=== PATIENT | male | born 1945 | race Caucasian/White ===

== ENCOUNTER → 2016-07-31 | Outpatient (CLI) | payer OTHER ==
--- NOTE | 2016-08-01 08:29 | RAD ---
EXAM DESCRIPTION: XR KNEE 4 OR MORE VIEWS CLINICAL HISTORY: 71 y/o ,M, REACTIVE ARTHROPATHIES, LEFT KNEE PAIN COMPARISON: None. IMPRESSION: Tricompartment degenerative change of left knee with osteophyte formation and joint space loss in all 3 compartments. Small loose body noted within the intertrochanteric notch. Small joint effusion. Electronically signed by: Richard Díaz MD 08/01/2016 08:28
== END ==
LOC: RAD 14:33
PROVIDERS: ATTEND Nurse Practitioner Family
DX: M25.562 Pain in left knee (principal); M02.86 Other reactive arthropathies, knee; M25.462 Effusion, left knee

== ENCOUNTER → 2016-10-02 | Outpatient (CLI) | payer OTHER | END | disposition home or self-care (01) | LOC: LAB.O 17:01 | PROVIDERS: ATTEND Nurse Practitioner Family | DX: I50.9 Heart failure, unspecified (principal); I10 Essential (primary) hypertension ==

== ENCOUNTER → 2016-10-04 | Outpatient (CLI) | payer OTHER ==
--- NOTE | 2016-10-04 16:26 | RAD ---
Procedure: XR KNEE 4 OR MORE VIEWS Exam Date: 10/04/2016 Ordering Provider: NAZANIN ADAMS Clinical Indication: KNEE PAIN Comparison: July 31, 2016 FINDINGS: There is no acute fracture or dislocation. Tricompartmental degenerative changes with periarticular osteophyte formation and moderate joint space narrowing in the medial compartment. Loose body in the intertrochanteric notch redemonstrated. Superior patellar enthesophyte. No lytic or sclerotic lesions. Small joint effusion. No subcutaneous gas. Vascular calcifications. IMPRESSION: 1. No acute fracture or dislocation of the left knee. 2. Tricompartmental degenerative changes with moderate joint space narrowing in the medial compartment. Electronically signed by: Victor Manuel Augustin MD 10/04/2016 4:26 PM CDT
--- NOTE | 2016-10-04 16:36 | RAD ---
Procedure: XR PELVIS 1-2 VIEWS Exam Date: 10/04/2016 Ordering Provider: NAZANIN ADAMS Clinical Indication: HIP PAIN Comparison: None FINDINGS: There is no fracture or dislocation. Mild degenerative changes in both hips.. The sacroiliac joints are preserved bilaterally. The pubic symphysis is normal. There are no lytic or sclerotic lesions. There are no suspicious calcifications. Vascular calcifications. Impression: 1. No acute findings within the pelvis or either hip. Electronically signed by: Victor Manuel Augustin MD 10/04/2016 4:35 PM CDT
--- NOTE | 2016-10-04 18:40 | RAD ---
EXAM DESCRIPTION: Knee,Right Complete CLINICAL HISTORY: 71 years,Male,KNEE PAIN COMPARISON: None FINDINGS: The right knee demonstrates no fractures, dislocations, or other acute bony abnormalities. The joint spaces severe loss of joint space complete in the medial compartment mild body lateral compartment and mild loss of joint space patellofemoral compartment with osteophyte changes mild in all three compartments. The soft tissues demonstrates some scattered calcified or treated disease. And surgical clips in the soft tissues of the medial knee. No joint effusion. IMPRESSION: Severe medial compartment arthritic changes and mild lateral and patellofemoral of the right knee Electronically signed by: Phil Armstrong MD 10/04/2016 6:40 PM CDT
== END | disposition home or self-care (01) ==
LOC: RAD 07:44
PROVIDERS: ATTEND Orthopaedic Surgery
DX: M25.561 Pain in right knee (principal); M25.551 Pain in right hip

== ENCOUNTER → 2016-10-09 | Outpatient (CLI) | payer OTHER ==
--- NOTE | 2016-10-09 11:42 | MRI ---
EXAM DESCRIPTION: Brain w/wo Contrast CLINICAL HISTORY: AMS, FALLS COMPARISON: None available TECHNIQUE: Non contrast MRI of the brain is performed according to our usual protocol including multiplanar multi sequence technique. Post contrasted imaging was available. FINDINGS: There is no restricted diffusion on today's study. Mild involutional changes. Minimal periventricular and deep white matter disease noted with a few T2 hyperintensities scattered throughout today's exam. There is prominence of the sulci and ventricles due to the involutional change. No mass, mass effect or shift. The flow voids are maintained within the major intracranial vessels. Negative for Chiari malformation. Remaining midline structures are unremarkable. Orbits and globes are unremarkable. The paranasal sinuses are clear. Minimal fluid seen within the left mastoid air cells. IMPRESSION: Today's exam demonstrates minimal chronic microvascular ischemic change and cerebral atrophy. No acute infarct on today's exam or mass. No abnormal enhancement on the postcontrast. Electronically signed by: Richard Díaz MD 10/09/2016 11:40 AM CDT
== END | disposition home or self-care (01) ==
LOC: MRI 07:38
PROVIDERS: ATTEND Nurse Practitioner Family
DX: R41.82 Altered mental status, unspecified (principal); R29.6 Repeated falls

== ENCOUNTER → 2016-11-02 | Outpatient (CLI) | payer OTHER | END | disposition home or self-care (01) | LOC: LAB.O 08:26 | PROVIDERS: ATTEND Nurse Practitioner Family | DX: E11.9 Type 2 diabetes mellitus without complications (principal) ==

== ENCOUNTER → 2016-11-23 | Outpatient (CLI) | payer OTHER | END | disposition home or self-care (01) | LOC: LAB.O 09:28 | PROVIDERS: ATTEND Nurse Practitioner Family | DX: R07.89 Other chest pain (principal) ==

== ENCOUNTER → 2016-12-06 | Outpatient (CLI) | payer OTHER | LOC: LAB.O 08:28 | PROVIDERS: ATTEND Nurse Practitioner Family | DX: E11.9 Type 2 diabetes mellitus without complications (principal) ==

== ENCOUNTER 2017-09-09 23:21 | Emergency (ER) | payer OTHER ==
[2017-09-10 00:09] VITALS: O2SAT 97
--- NOTE | 2017-09-10 01:14 | RAD ---
EXAM: AP CHEST RADIOGRAPH CLINICAL INDICATION: Chest pain. COMPARISON: Chest radiographs of August 19, 2013. FINDINGS: Unchanged sequela of remote heart surgery. Cardiac size and pulmonary vasculature are normal. Lungs are clear. No pleural effusions or pneumothorax. No hilar or mediastinal lymphadenopathy. No mediastinal widening. No extraluminal bowel gas under the hemidiaphragms. Bones are intact on this single view. IMPRESSION: Normal remote heart surgery portable AP chest radiograph. Electronically signed by: Beni Walsh MD 09/10/2017 1:13 AM CDT
[2017-09-10] MEDS ORDERED: ALUM & MAG HYDROX-SIMETHICONE 30 ML, LIDOCAINE VISCOUS 2% 15 ML PO ONE ×2 (01:55)
[2017-09-10] MEDS ORDERED: ALUM & MAG HYDROX-SIMETHICONE 30 ML UD ONE (01:56)
[2017-09-10] MEDS ORDERED: LIDOCAINE HCL 2% (MOUTH-THROAT) 15 ML UD ONE (01:56)
[2017-09-10] MEDS ORDERED: PANTOPRAZOLE SODIUM IV 40 MG VIAL IV ONE (02:09)
--- NOTE | 2017-09-10 02:12 | ED.PDOC ---
History of Present Illness - General Chief Complaint: GI Problem Stated Complaint: indigestion, epigastric burning 2 days Time Seen by Provider: 09/10/17 00:26 Source: patient Exam Limitations: no limitations - History of Present Illness Initial Comments: Carlos Gaines 72 y/o male stated that he had been having no radiating burning epigastric pain for the last 2 days no chest pains ,no nausea,vomiting or sob.Staed that he has GERD and had 2 heart attacks in the past stating that he was hurting more when he had the heart attack. Timing/Duration: other - 2 days Severity: moderate Improving Factors: nothing Worsening Factors: nothing Associated Symptoms: denies symptoms Allergies/Adverse Reactions: Allergies Cephalexin [From Keflex] Allergy (Verified 09/10/17 00:06) Home Medications: Ambulatory Orders Carvedilol [Carvedilol] 09/10/17 Carvedilol [Coreg] 09/10/17 Lisinopril [Prinivil] 09/10/17 Lisinopril [Prinivil] 09/10/17 Lispro Protamine/Lispro 75/25 [Humalog Mix 75/25] 09/10/17 Lispro Protamine/Lispro 75/25 [Humalog Mix 75/25] 09/10/17 Omeprazole [Prilosec Cap] 09/10/17 Omeprazole [Prilosec Cap] 09/10/17 Tramadol HCl 25 mg PO BID PRN #30 tab 09/10/17 Review of Systems - Review of Systems Constitutional: States: no symptoms reported EENTM: States: no symptoms reported Respiratory: States: no symptoms reported Cardiology: States: no symptoms reported Gastrointestinal/Abdominal: States: no symptoms reported Genitourinary: States: see HPI Musculoskeletal: States: no symptoms reported All other Systems: Reviewed and Negative, No Change from Baseline Past Medical History (General) - Patient Medical History Hx Cardiac Disorders: Yes Hx Diabetes: Yes Surgical History: coronary bypass surgery, other - stents,knee,forearm - Vaccination History Hx Tetanus, Diphtheria Vaccination: Yes - Triage Comment ED Triage Comment: epigastric burning, relieved with pepto earlier, but burning returned Family Medical History - Family History Father Family History: Unknown Hx Cardiac Disease: Yes - mi-mom/dad Hx Family Diabetes: Yes - dad,brother Hx Family Cancer: Yes - mom-gastric Physical Exam - Physical Exam General Appearance: Alert, Comfortable, No apparent distress Eye Exam: bilateral normal Ears, Nose, Throat: hearing grossly normal, normal ENT inspection Neck: non-tender, full range of motion, supple Respiratory: chest non-tender, lungs clear, normal breath sounds Cardiovascular/Chest: regular rate, rhythm, no murmur Peripheral Pulses: radial,right: 2+, radial,left: 2+ Gastrointestinal/Abdominal: normal bowel sounds, non tender, soft, no organomegaly Back Exam: no CVA tenderness, no vertebral tenderness Extremity: normal inspection, no calf tenderness Skin Exam: normal color, warm/dry Lymphatic: no adenopathy Progress - Progress Progress: 09/10/17 02:16 09/10/17 00:27 EKG Assessment DAILY 09/10/17 00:28 URINALYSIS Stat 09/10/17 00:30 EKG STAT 09/10/17 02:08 TROPONIN-I Stat Laboratory Results - last 24 hr 09/10/17 09/10/17 09/10/17 00:40 00:40 00:40 WBC 6.7 RBC 4.51 L Hgb 13.9 L Hct 39.0 L MCV 86.5 MCH 30.8 MCHC 35.6 RDW 13.4 Plt Count 181 MPV 8.9 Absolute Neuts (auto) 3.70 Absolute Lymphs (auto) 2.20 Absolute Monos (auto) 0.60 Absolute Eos (auto) 0.30 Absolute Basos (auto) 0.00 Neutrophils % 54.5 Lymphocytes % 32.2 Monocytes % 8.7 Eosinophils % 4.1 Basophils % 0.5 PT 11.5 INR 1.020 PTT (SP) 30.9 D-Dimer, Quantitative < 230 Sodium 136 Potassium 3.8 Chloride 103 Carbon Dioxide 25 Anion Gap 11.8 L BUN 14 Creatinine 0.92 BUN/Creatinine Ratio 15.2 Random Glucose 273 H Serum Osmolality 282.1 Calcium 8.9 Magnesium 1.6 L Total Bilirubin 0.6 Direct Bilirubin 0.1 Indirect Bilirubin 0.5 AST 20 ALT 16 Alkaline Phosphatase 90 Creatine Kinase 80 CK-MB (CK-2) 3.1 CK-MB (CK-2) % Not Reportable Troponin I < 0.02 B-Natriuretic Peptide 68.4 Serum Total Protein 6.6 Albumin 3.5 Lipase 15 L - Results/Orders Results/Orders: Abnormal Lab Results 09/10/17 09/10/17 00:40 00:40 RBC 4.51 L Hgb 13.9 L Hct 39.0 L Anion Gap 11.8 L Random Glucose 273 H Magnesium 1.6 L Lipase 15 L - EKG/XRAY/CT EKG: Sinus Comments: HR-82;LAE,LVH XRAY: chest - no acute changes Departure - Departure Clinical Impression: Abdominal pain Qualifiers: Abdominal location: epigastric Qualified Code(s): R10.13 - Epigastric pain Time of Disposition: 03:16 Disposition: Discharge to Home or Self Care Departure Forms: ED Discharge - Pt. Copy, Patient Portal Self Enrollment Diet: bland diet, other - Avoid greasy spicy foods;Follow up with primary MD for referral to [facility];Do not take aspirin and Ibuprofen together take it 2 hour apart Referrals: DAVID REDMAN IV, [employer]CHNICIAN [Primary Care Provider] - 1-2 Weeks Prescriptions: Tramadol HCl 25 mg PO BID PRN #30 tab PRN Reason: Pain Home Medications: Ambulatory Orders Carvedilol [Carvedilol] 09/10/17 Carvedilol [Coreg] 09/10/17 Lisinopril [Prinivil] 09/10/17 Lisinopril [Prinivil] 09/10/17 Lispro Protamine/Lispro 75/25 [Humalog Mix 75/25] 09/10/17 Lispro Protamine/Lispro 75/25 [Humalog Mix 75/25] 09/10/17 Omeprazole [Prilosec Cap] 09/10/17 Omeprazole [Prilosec Cap] 09/10/17 Tramadol HCl 25 mg PO BID PRN #30 tab 09/10/17
[2017-09-10] MEDS ORDERED: PANTOPRAZOLE SODIUM TAB 40 MG PO ONE (02:44)
[2017-09-10 03:31] VITALS: BP 154/68; TEMP 97.2
== END 2017-09-10 03:31 | disposition home or self-care (01) ==
LOC: ER 23:21
DX: R10.13 Epigastric pain (principal); E11.9 Type 2 diabetes mellitus without complications; I25.2 Old myocardial infarction; Z95.1 Presence of aortocoronary bypass graft

== ENCOUNTER → 2017-11-13 | Outpatient (CLI) | payer OTHER ==
--- NOTE | 2017-11-13 12:11 | MRI ---
EXAM DESCRIPTION: Lower Extremity,Right: Magnetic Resonance Imaging. CLINICAL HISTORY: M86.172. Other acute osteomyelitis, left ankle and foot. COMPARISON: None. TECHNIQUE: Multiplanar, high-field MRI, multiple sequences, without contrast: Right foot FINDINGS: Marrow edema is noted in the plantar aspect of the head of the great toe metatarsal and also on the distal dorsal aspect. These regions are hyperintense on inversion recovery and dark on T1 sequences. On the plantar aspect is a focal area of cortical and periosteal disruption and soft tissue edema. Soft tissue edema also noted on the plantar and distal lateral aspect of the head of the metatarsal. Normal marrow signal in the remaining metatarsals and phalanges. No significant joint effusion. No abnormal fluid collection mid and distal foot. No fractures. IMPRESSION: Osteomyelitis involving the head of the left great toe metatarsal with focal periosteal reaction and cortical disruption on the plantar aspect. Cellulitis abutting the head of the metatarsal. . CRITICAL COMMUNICATION: The critical value was discussed directly in person with Mr. Carlos Poe, nurse practitioner at approximately 1205 hours, on November 13, 2017. Electronically signed by: Jem Mcginnis MD 11/13/2017 12:10 PM CDT
== END ==
LOC: MRI 07:00
PROVIDERS: ATTEND Nurse Practitioner Family
DX: M86.171 Other acute osteomyelitis, right ankle and foot (principal)

== ENCOUNTER → 2017-11-14 | Outpatient (CLI) | payer OTHER ==
--- NOTE | 2017-11-15 16:00 | US ---
Exam: Bilateral lower extremity arterial Doppler sonogram CLINICAL HISTORY: Osteomyelitis, peripheral vascular disease, superficial femoral arterial stenosis on the right TECHNIQUE: Doppler sonographic evaluation of the bilateral lower extremities was performed. FINDINGS: Right Submitted sonographic images reveal normal widely patent vessels with no significant stenosis. Normal flow velocities with multiphasic flow throughout the right lower extremity. Calcified plaque is seen in the right common femoral artery and in the superficial femoral artery. High velocity in the distal superficial femoral artery is consistent with significant stenosis. Flow is monophasic below this level. The following peak systolic flow flow velocity measurements were obtained: Common femoral artery velocity equals 75 centimeters per second , triphasic. Superficial femoral artery velocity equals 78-162 centimeters per second triphasic proximally but monophasic at and below the high velocity distal SFA stenosis.. Popliteal artery velocity equals 45 centimeters per second , monophasic. Peroneal artery velocity equals 81 centimeters per second , monophasic. Posterior tibial artery velocity equals 49 centimeters per second , monophasic. Dorsalis pedis artery velocity equals 13 centimeters per second , monophasic. Left Submitted sonographic images reveal normal widely patent left lower extremity arteries with multiphasic flow and no significant stenosis. Calcified plaque is seen in the left superficial femoral artery and in the popliteal artery. Calcified vessels below the knees bilaterally with monophasic flow. The following peak systolic flow flow velocity measurements were obtained: Common femoral artery velocity was not obtained but the vessel appears widely patent on the submitted color flow images. Positive flow was seen in the proximal profunda femoral artery. Superficial femoral artery velocity equals 70-84 centimeters per second , triphasic. Popliteal artery velocity equals 71 centimeters per second , biphasic. Peroneal artery velocity equals 23 centimeters per second , monophasic. Posterior tibial artery velocity equals 60 centimeters per second , monophasic. Dorsalis pedis artery velocity equals 27 centimeters per second , monophasic. IMPRESSION: Severe arteriosclerotic disease with high-grade stenosis of the distal right superficial femoral artery. Monophasic flow in the right popliteal artery and in the arteries below the right knee. Monophasic flow in the arteries of the left lower extremity below the knee. Electronically signed by: Marcial Sierar MD 11/15/2017 3:59 PM CDT
--- NOTE | 2017-11-15 16:01 | US ---
EXAM DESCRIPTION: Venous,Lower Extremity RT CLINICAL HISTORY: OSTEOMYELITIS COMPARISON: None Available. TECHNIQUE: Right lower extremity venous duplex FINDINGS: Doppler evaluation of the right lower extremity deep veins was performed. Normal color flow is seen in the common femoral, superficial femoral, profunda femoral and greater saphenous veins. Normal flow is seen in the popliteal vein and veins below the knee in the calf. Normal venous compressibility and flow augmentation. IMPRESSION: Negative for evidence of deep venous thrombosis on right lower extremity venous Doppler sonogram. Electronically signed by: Marcial Sierra MD 11/15/2017 3:59 PM CDT
--- NOTE | 2017-11-15 16:02 | US ---
EXAM DESCRIPTION: Venous,Lower Extremity LT CLINICAL HISTORY: OSTEOMYELITIS COMPARISON: None Available. TECHNIQUE: Left lower extremity venous duplex FINDINGS: Doppler evaluation of the left lower extremity deep veins was performed. Normal color flow is seen in the common femoral, superficial femoral, profunda femoral and greater saphenous veins. Normal flow is seen in the popliteal vein and veins below the knee in the calf. Normal venous compressibility and flow augmentation. IMPRESSION: Negative for evidence of deep venous thrombosis on left lower extremity venous Doppler sonogram. Electronically signed by: Marcial Sierra MD 11/15/2017 4:00 PM CDT
== END ==
LOC: US 14:00
PROVIDERS: ATTEND Nurse Practitioner Family
DX: M86.171 Other acute osteomyelitis, right ankle and foot (principal); I70.201 Unspecified atherosclerosis of native arteries of extremities, right leg; I73.9 Peripheral vascular disease, unspecified; E11.621 Type 2 diabetes mellitus with foot ulcer

== ENCOUNTER → 2017-11-25 | Outpatient (CLI) | payer OTHER ==
--- NOTE | 2017-11-26 10:06 | CT ---
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 This exam was performed according to our departmental dose-optimization program, which includes automated exposure control, adjustment of the mA and/or kV according to patient size and/or use of iterative reconstruction technique. FINDINGS: Mural calcifications are noted in the abdominal aorta without aneurysm or dissection. There are mural calcifications in the splenic artery without apparent aneurysm or significant stenosis. The celiac axis is otherwise unremarkable. There is a small amount of calcified and noncalcified plaque at the origin of the superior mesenteric artery without significant stenosis. The renal and inferior mesenteric arteries are unremarkable. Mild mural calcifications are noted in the common, internal and external iliac arteries without significant stenosis. Calcified and noncalcified plaque is noted in the right common and superficial femoral arteries resulting in focal mild stenosis in the mid right SFA and moderately advanced focal stenosis in the distal right SFA (series 2 image 254). No right popliteal artery aneurysm or stenosis. Diffuse mural calcification is noted in the right lower extremity arteries below the level of the right knee with two-vessel runoff at the level of the right ankle and no focal high-grade stenosis. Calcified plaque in the left superficial femoral artery results in focal moderate stenosis of the proximal left SFA (series 2 image 224). There is an additional focal stenotic lesion in the mid/distal left SFA (series 2 image 262). Calcified and noncalcified plaque results in moderately advanced stenosis of the distal left popliteal artery (series 2 image 321). Diffuse atherosclerotic disease is noted in the left lower extremity vessels below the level of the left knee including moderate to advanced stenosis at several levels in the left anterior tibial and peroneal arteries. Two-vessel runoff is noted at the level of the left ankle. Hiatal hernia only partially visualized. Occasional colonic diverticulosis without diverticulitis. Degenerative changes are noted in the thoracolumbar spine at several levels. IMPRESSION: Calcified and noncalcified plaque in both superficial femoral arteries and also in the left popliteal artery resulting in moderate and moderately advanced focal stenotic lesions as detailed above. Diffuse atherosclerotic disease in both lower extremities below the level of the knees, slightly worse on the left side. No abdominal aortic aneurysm or dissection. Hiatal hernia, partially visualized. Colonic diverticulosis without diverticulitis. Electronically signed by: Kit Sanchez MD 11/26/2017 10:04 AM CDT
== END ==
LOC: CT 14:53
PROVIDERS: ATTEND Nurse Practitioner Family
DX: I70.201 Unspecified atherosclerosis of native arteries of extremities, right leg (principal); K44.9 Diaphragmatic hernia without obstruction or gangrene; K57.30 Diverticulosis of large intestine without perforation or abscess without bleeding

== ENCOUNTER → 2018-02-19 | Outpatient (CLI) | payer OTHER | LOC: NC 18:57 | PROVIDERS: ATTEND Family Medicine | DX: E10.621 Type 1 diabetes mellitus with foot ulcer (principal); E10.51 Type 1 diabetes mellitus with diabetic peripheral angiopathy without gangrene ==

== ENCOUNTER 2018-02-27 13:36 | Outpatient (CLI) | payer OTHER ==
[2018-02-27 13:46] VITALS: BP 135/78; TEMP 97.7; O2SAT 98
== END 2018-02-27 13:56 | disposition home or self-care (01) ==
LOC: TXRM 13:36
PROVIDERS: ATTEND Nurse Practitioner Family
DX: M86.171 Other acute osteomyelitis, right ankle and foot (principal)

== ENCOUNTER 2018-04-01 16:40 | Inpatient (IN) | payer OTHER ==
--- NOTE | 2018-04-01 16:45 | HP ---
SUPERVISING PHYSICIAN: Leah William MD CHIEF COMPLAINT: Osteomyelitis of the right foot. HISTORY OF PRESENT ILLNESS: Mr. Gaines is a 72-year-old male patient who has a long history of osteomyelitis involving the right foot. He has a history of type 2 diabetes mellitus and previously had a big toe amputation due to infection of diabetic ulcer. In October of this year, he developed a diabetic ulcer to the foot which progressed to osteomyelitis secondary to methicillin-resistant Staphylococcus aureus. He started outpatient infusion therapy with vancomycin in October of this year and did well with his therapy and treatment was completed, his PICC line was removed. In the last 3 weeks he had recurrence of the osteomyelitis. He was once again started back on IV infusion of vancomycin. He has been having wound management as well, but has had slow progress in his clinical presentation and continues to show persistent osteomyelitis ofd the right foot. His primary care provider , Carlos Poe, Nurse Practitioner, requested the patient be admitted for inpatient wound management along with continued infusions of vancomycin for treatment of the osteomyelitis with the patient having failed to respond to outpatient management having evidence of previously failed treatment course and recurrence. The patient is now going to be admitted to the Medical/Surgical Floor for ongoing treatment of osteomyelitis of the right foot. He does have a PICC line in place at time of admission and was stable. PAST MEDICAL HISTORY: 1. Osteomyelitis involving the right foot secondary to MRSA, having failed to respond to outpatient treatment measures twice. 2. Type 2 diabetes mellitus on insulin therapy. 3. Previous myocardial infarctions in 2008 and 2010 with coronary artery stent placement. PAST SURGICAL HISTORY: 1. Amputation of right great toe 7 years previous. 2. Coronary artery stent placements. 3. Right knee arthroscopic procedures. 4. Repair of artery in the left arm as a teenager. HOME MEDICATIONS: 1. Tramadol 25 mg b.i.d. for pain. 2. Gabapentin 100 mg 3 times a day. 3. Insulin Humalog mix 75%/25% 30 units subcutaneously q.a.m., 30 units subcutaneously q.p.m. 4. Pravastatin 40 mg at bedtime. 5. Lisinopril 20 mg daily. 6. Carvedilol 25 mg twice daily. 7. Omeprazole extended release tablets 20 mg daily. 8. Plavix 75 mg daily. 9. Meloxicam 7.5 mg daily. ALLERGIES: CEPHALEXIN. FAMILY HISTORY: Father at age 85. Mother at age 85, both from myocardial infarctions. He has two sons and one daughter. 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 He is . He currently lives in [place]. He does have a past history of smoking cigars, but quit in his 40s as well as he had a significant history of alcoholism, but has had alholic drink in well over 40 years. He denies any illicit drug use. REVIEW OF SYSTEMS: CONSTITUTIONAL: Denies any fevers, chills, body aches or general malaise. HEENT: Denies nasal congestion, earaches, sore throat, headaches. RESPIRATORY: Denies shortness of breath, coughing, wheezing. CARDIOVASCULAR: Denies chest pain, palpitations, peripheral edema or syncopal episodes. GASTROINTESTINAL: Denies nausea or vomiting, diarrhea, constipation or abdominal pains. GENITOURINARY: Denies dysuria, hematuria, polyuria or other urinary symptoms. EXTREMITIES: As noted in history of present illness, osteomyelitis involving the right foot. NEUROLOGIC: Denies syncopal episodes, seizure activity, ataxia or other neurologic deficits. PHYSICAL EXAMINATION: VITAL SIGNS: Temperature 97.8. Pulse 80. Blood pressure 172/97. Respirations 16. Saturation 97% on room air. Admission weight 85.2 kg. GENERAL: The patient appears to be comfortable, resting, in no acute distress. He is alert. HEENT: Tympanic membranes clear bilaterally. Oropharynx is pink, moist without any lesions. NECK: Supple, nontender with full range of motion. No jugular venous distention noted. RESPIRATORY: Lungs clear to auscultation bilaterally without any rhonchi, wheezes, or rales. CARDIOVASCULAR: Regular rate and rhythm without any appreciable murmurs, gallops, or rubs. ABDOMEN: Soft, nontender. Positive bowel sounds. EXTREMITIES: Right foot has a dressing in place with note of amputation of right great toe with chronic wound to the plantar aspect of the foot. Distal pulses are 1+ bilaterally. NEUROLOGIC: The patient is alert and oriented times three. Cranial nerves II- XII are grossly intact. Facial features are symmetrical. Extraocular movements are within normal limits. There is no nystagmus noted. LABORATORY: White count 6,100, hemoglobin 12.2, hematocrit 36.0, platelet count 172,000, differential without a left shift. Chemistries showed mildly low sodium of 134, potassium 4.2, BUN 25, creatinine 0.8, glucose 237, lactic acid 1.4, liver functions all within normal limits. MICROBIOLOGY: Blood cultures pending. RADIOLOGY: No additional radiographic studies were obtained. Review of past medical records show that he had an MRI of the right foot with and without contrast on 03/31/18 and per radiologic interpretation there was note of amputation of the first great toe with soft tissue defect on the plantar aspect of the right foot with the first metatarsal consistent with ulceration. There was no evidence of abscess. There was edema to the bone marrow of the distal first metatarsal bone which could be evidence of osteomyelitis and subcutaneous edema post contrast enhancement suggesting cellulitis. ASSESSMENT: 1. Chronic osteomyelitis involving the right foot, having failed to respond to aggressive outpatient vancomycin infusions and wound management with continued cellulitis, now requiring hospitalization for more aggressive wound management and physical therapy. 2. Diabetes mellitus, type 2, on insulin therapy, complicating #1. 3. History of hypertension. 4. History of previous myocardial infarctions times 2, one in 2008 and one in 2010 with coronary artery stent placement and being on Plavix. 5. Hypertension, poorly controlled. PLAN: The patient is going to be admitted to the Medical/Surgical Floor for initiation of wound management as well as continued infusion therapy with vancomycin per pharmacy protocol with close monitoring of renal function. We will have him on DVT prophylaxis per protocol as well as start him on insulin sliding scale per protocol. We will anticipate his length of stay to be at least 2 to 3 days with anticipation of needing more acute care management possibly at an long-term acute care facility or [facility]ing [facility] situation with arrangements to be determined in the next 24 to 48 hours. Given that the patient has responded very minimally to outpatient management, he is certainly warranted to have more aggressive wound management than can be done as an outpatient and ongoing physical therapy. We will anticipate his length of stay to be 2 to 3 days until he is showing more clinical improvement and arrangements can be made for more aggressive alf care management, we will continue to management appropriately. #[id number] [facility]
[2018-04-01] MEDS ORDERED: SODIUM CHLORIDE 0.9% (FLUSH) 10 ML SYG IV PRN (19:15)
[2018-04-01] MEDS ORDERED: DEXTROSE 50% 25 GM/50 ML SYG IV PRN (19:15)
[2018-04-01] MEDS ORDERED: ACETAMINOPHEN 325 MG TAB PO PRN (19:15)
[2018-04-01] MEDS ORDERED: GLUCAGON INJ 1 MG VIAL SUBCU PRN (19:15)
[2018-04-01] MEDS ORDERED: VANCOMYCIN PER PHARMACY INJ SCH (19:30)
[2018-04-01] MEDS ORDERED: SODIUM CHLORIDE 0.9% 250ML 250 ML ONE (19:56)
[2018-04-01] MEDS ORDERED: VANCOMYCIN HCL INJ 1,000 MG VIAL IVPB ONE (19:56)
[2018-04-01] MEDS: INSULIN LISPRO 100 UNITS/ML PEN SUBCU SCH (21:09)
[2018-04-01] MEDS: ENOXAPARIN SODIUM 40 MG/0.4 ML SYG SUBCU SCH (21:10)
[2018-04-01] MEDS: IV SET AND CAP CHANGE INJ INJ SCH (21:11)
[2018-04-01] MEDS: VANCOMYCIN HCL INJ 1,000 MG in SODIUM CHLORIDE 0.9% 250ML 250 ML IVPB SCH (21:11)
[2018-04-01] MEDS: CARVEDILOL 12.5 MG TAB PO SCH (23:32)
[2018-04-01] MEDS: KCL 20 MEQ/NS 1,000 ML IVS PRN (23:32)
[2018-04-01] MEDS: GABAPENTIN 100 MG CAP PO SCH (23:32)
[2018-04-02] MEDS: INSULIN LISPRO 100 UNITS/ML PEN SUBCU SCH ×4 (07:47→21:14)
[2018-04-02] MEDS ORDERED: SODIUM CHLORIDE 0.9% 250ML 250 ML ONE ×2 (09:51→20:50)
[2018-04-02] MEDS ORDERED: VANCOMYCIN HCL INJ 1,000 MG VIAL IVPB ONE ×2 (09:52→20:51)
[2018-04-02] MEDS: VANCOMYCIN HCL INJ 1,000 MG in SODIUM CHLORIDE 0.9% 250ML 250 ML IVPB SCH (09:57)
[2018-04-02] MEDS: MELOXICAM 7.5 MG TAB PO SCH (09:57)
[2018-04-02] MEDS: OMEPRAZOLE CAP 20 MG CAP PO SCH (09:58)
[2018-04-02] MEDS: LISINOPRIL 10 MG TAB PO SCH (09:58)
[2018-04-02] MEDS: CLOPIDOGREL 75 MG TAB PO SCH (09:58)
[2018-04-02] MEDS: CARVEDILOL 12.5 MG TAB PO SCH ×2 (09:58→21:34)
[2018-04-02] MEDS: GABAPENTIN 100 MG CAP PO SCH ×3 (09:59→21:33)
[2018-04-02] MEDS: KCL 20 MEQ/NS 1,000 ML IVS PRN (14:07)
[2018-04-02] MEDS ORDERED: INSULIN DETEMIR 100 UNITS/ML PEN SUBCU SCH ×2 (19:00→21:10)
[2018-04-02] MEDS ORDERED: VANCOMYCIN HCL INJ 500 MG VIAL ONE (20:50)
[2018-04-02] MEDS ORDERED: NON-FORMULARY MEDICATION 1 EA MIS (Pravastatin Sodium [Pravastatin Sodium] 40 MG) PO SCH (21:00)
[2018-04-02] MEDS ORDERED: TEMAZEPAM 15 MG CAP PO PRN (21:05)
[2018-04-02] MEDS ORDERED: INSULIN LISPRO 100 UNITS/ML PEN SUBCU ONE (21:08)
[2018-04-02] MEDS: SIMVASTATIN 20 MG TAB PO SCH (21:33)
[2018-04-02] MEDS: ENOXAPARIN SODIUM 40 MG/0.4 ML SYG SUBCU SCH (21:33)
[2018-04-02] MEDS: VANCOMYCIN HCL INJ 1,000 MG, VANCOMYCIN HCL INJ 250 MG in SODIUM CHLORIDE 0.9% 250ML 25... IVPB SCH (21:34)
--- NOTE | 2018-04-03 00:02 | PN ---
DATE: 04/02/18 SUPERVISING PHYSICIAN: Eric William M.D. SUBJECTIVE: the patient is sitting in the bedside chair. Notes he has had very little sleep tonight but he has had good pain control. He has been afebrile. He has had no further complaints. OBJECTIVE: VITAL SIGNS: Temperature 97.7, pulse 79, blood pressure 136/74, respirations 18, satting 97% on room air. I's and O's show a negative balance of 335 with 990 in, 1325 out. Weight is 85.3 kg. GENERAL: The patient appears to be comfortable, resting, in no distress. He is alert. CHEST: Lungs are clear to auscultation bilaterally. HEART: Regular rate and rhythm. ABDOMEN: Obese but soft, non-tender. Positive bowel sounds. EXTREMITIES: Right lower extremity on the foot has a walking shoe in place with a dressing noted overlying the distal aspect of the foot with no drainage noticed on bandage. Pulses distally are 1+ bilaterally. LABORATORY: Chemistries showed normal electrolytes this morning with BUN 17, creatinine 0.89. Blood sugars have been fairly elevated between 168 and 379. MICROBIOLOGY: Blood cultures remain pending but negative to current date. ASSESSMENT: 1. Chronic osteomyelitis involving the right foot, having failed to respond to aggressive outpatient vancomycin infusions and wound management with continued worsening cellulitis requiring hospitalization for more aggressive wound management and ongoing antibiotic therapy. 2. Diabetes mellitus, type 2, on insulin therapy, complicating #1. 3. History of hypertension. 4. History of previous myocardial infarctions times 2, one in 2008 and one in 2010 with coronary artery stent placement and on Plavix. 5. Hypertension, poorly controlled. PLAN: Will continue with vancomycin per Pharmacy protocol and wound management. He will work with Physical Therapy today as well as discussion as to discharge planning, possibly going to a vermin exterminator acute care facility for more aggressive wound management considering that he has had another recurrence of the osteomyelitis in less than 3 weeks after initial treatment. Will continue to monitor the patient closely until clinically stable enough to discharge. Once plan is in place, hopefully he will discharge to LTAC. Until then, continue to monitor and treat appropriately. [facility][id number] [facility]
[2018-04-03] MEDS: KCL 20 MEQ/NS 1,000 ML IVS PRN ×2 (04:43→19:03)
[2018-04-03] MEDS ORDERED: VANCOMYCIN HCL INJ 500 MG VIAL ONE ×2 (08:01→19:41)
[2018-04-03] MEDS ORDERED: VANCOMYCIN HCL INJ 1,000 MG VIAL IVPB ONE ×2 (08:02→19:42)
[2018-04-03] MEDS ORDERED: SODIUM CHLORIDE 0.9% 250ML 250 ML ONE ×2 (08:02→19:41)
[2018-04-03] MEDS: INSULIN LISPRO 100 UNITS/ML PEN SUBCU SCH ×4 (08:04→21:14)
[2018-04-03] MEDS: CARVEDILOL 12.5 MG TAB PO SCH ×2 (09:06→20:39)
[2018-04-03] MEDS: MELOXICAM 7.5 MG TAB PO SCH (09:07)
[2018-04-03] MEDS: LISINOPRIL 10 MG TAB PO SCH (09:07)
[2018-04-03] MEDS: GABAPENTIN 100 MG CAP PO SCH ×3 (09:07→20:40)
[2018-04-03] MEDS: OMEPRAZOLE CAP 20 MG CAP PO SCH (09:08)
[2018-04-03] MEDS: VANCOMYCIN HCL INJ 1,000 MG, VANCOMYCIN HCL INJ 250 MG in SODIUM CHLORIDE 0.9% 250ML 25... IVPB SCH ×2 (09:08→20:40)
[2018-04-03] MEDS: CLOPIDOGREL 75 MG TAB PO SCH (09:08)
[2018-04-03] MEDS: INSULIN DETEMIR 100 UNITS/ML PEN SUBCU SCH ×2 (09:13→21:15)
[2018-04-03] MEDS: ENOXAPARIN SODIUM 40 MG/0.4 ML SYG SUBCU SCH (20:40)
[2018-04-03] MEDS: SIMVASTATIN 20 MG TAB PO SCH (21:18)
[2018-04-04] MEDS ORDERED: VANCOMYCIN HCL INJ 500 MG VIAL ONE (03:07)
[2018-04-04] MEDS ORDERED: SODIUM CHLORIDE 0.9% 250ML 0 ML ONE (03:08)
[2018-04-04] MEDS ORDERED: VANCOMYCIN HCL INJ 1,000 MG VIAL IVPB ONE ×2 (03:09→19:48)
[2018-04-04] MEDS: INSULIN LISPRO 100 UNITS/ML PEN SUBCU SCH ×4 (07:17→21:17)
[2018-04-04] MEDS: CLOPIDOGREL 75 MG TAB PO SCH (08:03)
[2018-04-04] MEDS: CARVEDILOL 12.5 MG TAB PO SCH ×2 (08:03→20:30)
[2018-04-04] MEDS: LISINOPRIL 10 MG TAB PO SCH (08:03)
[2018-04-04] MEDS: GABAPENTIN 100 MG CAP PO SCH ×3 (08:03→20:31)
[2018-04-04] MEDS: OMEPRAZOLE CAP 20 MG CAP PO SCH (08:03)
[2018-04-04] MEDS: MELOXICAM 7.5 MG TAB PO SCH (08:03)
[2018-04-04] MEDS: INSULIN DETEMIR 100 UNITS/ML PEN SUBCU SCH ×2 (08:07→21:17)
--- NOTE | 2018-04-04 08:22 | PN ---
SUPERVISING PHYSICIAN: Leah William MD DATE: 04/03/18 SUBJECTIVE: The patient is sitting up in his chair in his room. He has no complaints of shortness of breath, nausea, vomiting, diarrhea. He does say his foot hurts some, but he is ready to go to a facility to get his leg healed. OBJECTIVE: VITAL SIGNS: Afebrile. Heart rate 9. Blood pressure 165/70. Respiratory rate 20. O2 saturation 97% on room RESPIRATORY: Essentially clear to auscultation bilaterally. CARDIAC: Regular rate and rhythm. GASTROINTESTINAL: Abdomen is soft, nondistended, nontender. Bowel sounds are positive. EXTREMITIES: He has a walking boot in place on his right lower extremity with a dressing in place that is dry and intact. Pedal pulses are +1 bilaterally. LABORATORY: Blood sugars were as low as 61 this morning and have been as high as 381. All other labs and films have been reviewed via the EMR. ASSESSMENT: 1. Chronic osteomyelitis involving the right foot, having failed to respond to aggressive outpatient vancomycin infusions and wound management with continued worsening cellulitis requiring hospitalization for more aggressive wound management and ongoing antibiotic therapy. 2. Diabetes mellitus, type 2, on insulin therapy, complicating #1. 3. History of hypertension, poorly controlled. 4. History of previous myocardial infarctions times 2, one in 2008 and one in 2010 with coronary artery stent placement and on Plavix. PLAN: We will continue present supportive care including vancomycin per pharmacy protocol. We will have continued wound management as well as work with physical therapy. His discharge planning is to go to a long-term care facility for more aggressive wound treatment and will need long therapy of osteomyelitis treatment especially considering he had a recurrence of that osteomyelitis less than three weeks after his treatment. We will continue to monitor the patient closely and follow as needed. Carlos Poe, his primary care provider, may have some information on his placement in [place]. We will need to be in contact with him to find out further information. Dr. William is the collaborating physician and available for consultation. #[id number] [facility]ENTERLuiza
[2018-04-04] MEDS ORDERED: VANCOMYCIN HCL INJ 1,000 MG in SODIUM CHLORIDE 0.9% 250ML 250 ML IVPB SCH ×2 (09:00→21:00)
[2018-04-04] MEDS ORDERED: SODIUM CHLORIDE 0.9% 250ML 250 ML ONE (19:47)
[2018-04-04] MEDS: SIMVASTATIN 20 MG TAB PO SCH (20:31)
[2018-04-04] MEDS: ENOXAPARIN SODIUM 40 MG/0.4 ML SYG SUBCU SCH (21:23)
[2018-04-04] MEDS: IV SET AND CAP CHANGE INJ INJ SCH (21:24)
[2018-04-04 22:05] VITALS: BP 172/86; TEMP 98.2; O2SAT 97
--- NOTE | 2018-04-05 20:23 | DS ---
SUPERVISING PHYSICIAN: Eric William M.D. DISCHARGE DIAGNOSIS: 1. Chronic osteomyelitis involving the right foot, having failed to respond to aggressive outpatient vancomycin infusions and wound management with continued worsening cellulitis requiring hospitalization for more aggressive wound management and ongoing antibiotic therapy. 2. Diabetes mellitus, type 2, on insulin therapy, complicating #1. 3. History of hypertension, poorly controlled. 4. History of previous myocardial infarctions times 2, one in 2008 and one in 2010 with coronary artery stent placement and on Plavix. HISTORY OF PRESENT ILLNESS: This is a 72-year-old male patient who has a long history of osteomyelitis involving the right foot. He has a history of type 2 diabetes mellitus and previously had a big toe amputation due to infection of diabetic ulcer. In October of this year, he developed a diabetic ulcer to the foot and it progressed to osteomyelitis secondary to methicillin-resistant Staphylococcus aureus. He started outpatient infusion therapy with vancomycin in October of this year and did well with his therapy and treatment and it was completed. His PICC line was removed. In the last 3 weeks he had recurrence of the osteomyelitis. He was once again started back on IV infusion of vancomycin. He has been having wound management as well in [place], but has had very slow progress in his clinical presentation and continues to show persistent osteomyelitis of the right foot. His primary care provider, Carlos Poe, Nurse Practitioner, requested the patient be admitted for inpatient wound management along with continued infusions of vancomycin for treatment of the osteomyelitis since the patient failed to respond to outpatient management having evidence of previously failed treatment course and recurrence. He was admitted to the hospital in stable condition. HOSPITAL COURSE: He was continued on his vancomycin therapy per hospital protocol. Over the next several days it was attempted to get him placed in an LTAC in [place] for wound care management as well as ongoing IV therapy. Today, the LTAC had not responded to accept his admission to their facility and we are continuing our efforts to get him transferred to that, but the patient would like to be discharged home and to do vancomycin as an outpatient in the hospital here twice daily as well as doing 3 times weekly wound care management at [facility] in [place], [place]. The patient said that he would comply with that and hopefully by Saturday or Saturday he can be admitted to the LTAC facility in [place]. DISCHARGE PLAN: The patient will be discharged home in stable condition today. He has [facility]. He is assisted in going to the wound care management people in [place] on Saturday, Wednesdays and Fridays and he is to continue with that until he is placed in the LTAC. He will come to the hospital twice daily for an infusion of vancomycin until the time that he is sent to the LTAC. His vancomycin will be per Pharmacy protocol. Lab studies will be continued as ordered by Pharmacy. He is to return to the hospital or followup with Carlos Poe's office for ay problems or complications. Hopefully by sometime next week he will be placed in the LTAC in [place]. DISCHARGE MEDICATIONS: 1. Omeprazole. 2. Insulin 75/25 30 units in the morning, 25 units at h.s. 3. Lisinopril. 4. Carvedilol. 5. Pravastatin. 6. Gabapentin. 7. Plavix. 8. Tramadol. 9. Meloxicam. #[id number] [facility]
== END 2018-04-04 23:05 | disposition home health service (06) | DRG 638 ==
LOC: MS 16:40
PROVIDERS: ADMIT Nurse Practitioner Family; ATTEND Nurse Practitioner Acute Care
DX: E11.69 Type 2 diabetes mellitus with other specified complication (principal); M86.671 Other chronic osteomyelitis, right ankle and foot; L97.419 Non-pressure chronic ulcer of right heel and midfoot with unspecified severity; L03.115 Cellulitis of right lower limb; E11.621 Type 2 diabetes mellitus with foot ulcer; I10 Essential (primary) hypertension; Z79.4 Long term (current) use of insulin; Z89.411 Acquired absence of right great toe; Z95.5 Presence of coronary angioplasty implant and graft; Z79.02 Long term (current) use of antithrombotics/antiplatelets

== ENCOUNTER 2018-10-07 20:58 | Emergency (ER) | payer MEDICARE, OTHER ==
[2018-10-07] MEDS ORDERED: TETANUS,DIPHTHERIA,PERTUSSIS 1 EA SYG IM ONE (21:35)
[2018-10-07] MEDS ORDERED: POVIDONE IODINE 10 % 15 ML UD TOP ONE (21:35)
[2018-10-07] MEDS ORDERED: levoFLOXacin 500 MG TAB PO ONE (23:26)
[2018-10-07] MEDS ORDERED: AMOXICILLIN TRIHYDRATE 875 MG TAB PO ONE (23:26)
[2018-10-07 23:27] VITALS: BP 134/81; O2SAT 96
--- NOTE | 2018-10-07 23:29 | ED.PDOC ---
History of Present Illness - General Chief Complaint: Skin/Abrasion/Tear Stated Complaint: stepped on nail Time Seen by Provider: 10/07/18 23:24 Source: patient Exam Limitations: no limitations - History of Present Illness Initial Comments: Carlos Gaines 73 y/o male stated that he stepped on a roof nail right foot walking on his house today.No history of fall.Had bleeding right foot but stopped. Timing/Duration: this evening Severity: moderate Location: feet - right Improving Factors: movement Worsening Factors: rest Associated Symptoms: other - see hpi Allergies/Adverse Reactions: Allergies Cephalexin [From Keflex] Allergy (Verified 10/07/18 21:26) Home Medications: Ambulatory Orders Carvedilol [Coreg] 25 mg PO BID 09/10/17 Lisinopril [Prinivil] 10 mg PO DAILY 09/10/17 Lispro Protamine/Lispro 75/25 [Humalog Mix 75/25] 30 units SC DAILY@0700 09/10/17 Omeprazole [Prilosec Cap] 20 mg PO DAILY 09/10/17 Clopidogrel Bisulfate [Plavix] 75 mg PO DAILY 04/01/18 Gabapentin 100 mg PO TID 04/01/18 Meloxicam [Mobic] 7.5 mg PO DAILY 04/01/18 Pravastatin Sodium 40 mg PO BEDTIME 04/01/18 Tramadol HCl 04/01/18 Insulin Protamine/Lispro 75/25 [Humalog Mix 75/25 Pen] 25 unit SUBCU BEDTIME #1 pen 04/04/18 Amoxicillin [Amoxil] 1,000 mg PO BID 10 Days #40 cap 10/08/18 Ciprofloxacin [Cipro] 500 mg PO BID 10 Days #20 tab 10/08/18 Review of Systems - Review of Systems Musculoskeletal: States: see HPI Skin: States: see HPI, other - chronic foot ulcer forefoot followed up by ortho All other Systems: Reviewed and Negative, No Change from Baseline Past Medical History (General) - Patient Medical History Hx Seizures: No Hx Stroke: Yes Hx Asthma: Yes Hx of COPD: No Hx Cardiac Disorders: Yes - NM x2, stents, bypass Hx Congestive Heart Failure: No Hx Pacemaker: No Hx Hypertension: Yes Hx Diabetes: Yes Hx MRSA: No Surgical History: coronary bypass surgery, other - amputation right toe;stent- cardiac,skin - Vaccination History Hx Tetanus, Diphtheria Vaccination: Yes - Social History Hx Tobacco Use: Yes Hx Alcohol Use: No - quit 40 yrs ago Hx Substance Use: No Hx Physical Abuse: No Hx Emotional Abuse: No Family Medical History - Family History Father Family History: Unknown Hx Cardiac Disease: Yes - mi-mom/dad Hx Family Diabetes: Yes - dad,brother Hx Family Cancer: Yes - mom-gastric Physical Exam - Physical Exam General Appearance: Alert, Comfortable, No apparent distress Eyes, Ears, Nose, Throat Exam: normal ENT inspection, pharynx normal Neck: supple Cardiovascular/Chest: normal peripheral pulses, regular rate, rhythm, no murmur Respiratory: lungs clear, normal breath sounds Gastrointestinal/Abdominal: non tender, soft Extremity: no pedal edema, no calf tenderness, other - amputated right big toe Skin Exam: warm/dry, normal color Skin Problem Location: lower extremities - right foot, other - chronic foot ulcer right forefoot Skin Character: other - puntured wound plantar aspect right foot Progress - Progress Progress: 10/07/18 23:31 Vital Signs - 8 hr 10/07/18 10/07/18 21:27 23:25 Temperature 98.0 F Pulse Rate [ 98 H 77 left] Respiratory 18 18 Rate Blood Pressure 145/80 134/81 [left] O2 Sat by Pulse 99 96 Oximetry 10/08/18 00:20 Denies allergies to Penicillin only to Cephalexin Departure - Departure Clinical Impression: Puncture wound of foot, left Qualifiers: Encounter type: initial encounter Qualified Code(s): S91.332A - Puncture wound without foreign body, left foot, initial encounter Nail wound of right foot Qualifiers: Encounter type: initial encounter Qualified Code(s): S91.331A - Puncture wound without foreign body, right foot, initial encounter Time of Disposition: 00:17 Disposition: Discharge to Home or Self Care Condition: Fair Departure Forms: ED Discharge - Pt. Copy, Patient Portal Self Enrollment Referrals: DAVID REDMAN IV, NP [Primary Care Provider] - 1-2 Weeks Prescriptions: Amoxicillin [Amoxil] 1,000 mg PO BID 10 Days #40 cap Ciprofloxacin [Cipro] 500 mg PO BID 10 Days #20 tab Home Medications: Ambulatory Orders Carvedilol [Coreg] 25 mg PO BID 09/10/17 Lisinopril [Prinivil] 10 mg PO DAILY 09/10/17 Lispro Protamine/Lispro 75/25 [Humalog Mix 75/25] 30 units SC DAILY@0700 09/10/17 Omeprazole [Prilosec Cap] 20 mg PO DAILY 09/10/17 Clopidogrel Bisulfate [Plavix] 75 mg PO DAILY 04/01/18 Gabapentin 100 mg PO TID 04/01/18 Meloxicam [Mobic] 7.5 mg PO DAILY 04/01/18 Pravastatin Sodium 40 mg PO BEDTIME 04/01/18 Tramadol HCl 04/01/18 Insulin Protamine/Lispro 75/25 [Humalog Mix 75/25 Pen] 25 unit SUBCU BEDTIME #1 pen 04/04/18 Amoxicillin [Amoxil] 1,000 mg PO BID 10 Days #40 cap 10/08/18 Ciprofloxacin [Cipro] 500 mg PO BID 10 Days #20 tab 10/08/18 Additional Instructions: Return to Emergency Room as needed;Follow up with primary Md 09 October 2018 for recheck
--- NOTE | 2018-10-07 23:49 | RAD ---
EXAM DESCRIPTION: Foot,Right 2 Views CLINICAL HISTORY: 73 years ,Male stepped on nail, large toe area COMPARISON: MRI 02/13/2018. TECHNIQUE: RIGHT foot, two view FINDINGS: Bony demineralization. Amputation of the first toe in the mid shaft of the metatarsal. There is soft tissue swelling around the stump. Possibility of infection is not excluded. No obvious foreign object is noted. If there is concern for osteomyelitis recommend bone scan. Vascular calcification. Calcaneal spur. Soft tissue swelling along the plantar surface over the ball of the foot and along the amputation site. Cellulitis or underlying abscess is not excluded Amputation of the first great toe in the mid shaft of the metatarsal. If there is concern for osteomyelitis recommend bone scan or MRI IMPRESSION: No acute fracture or dislocation is identified. Electronically signed by: Caity Sanchez MD 10/07/2018 11:45 PM CDT
[2018-10-08 00:29] VITALS: TEMP 98.4
== END 2018-10-08 00:29 | disposition home or self-care (01) ==
LOC: ER 20:58
DX: S91.331A Puncture wound without foreign body, right foot, initial encounter (principal); J45.909 Unspecified asthma, uncomplicated; I25.2 Old myocardial infarction; E11.9 Type 2 diabetes mellitus without complications; I10 Essential (primary) hypertension; Z95.5 Presence of coronary angioplasty implant and graft; Z86.73 Personal history of transient ischemic attack (TIA), and cerebral infarction without residual deficits; Z87.891 Personal history of nicotine dependence; Z79.4 Long term (current) use of insulin; Z79.899 Other long term (current) drug therapy; Z88.1 Allergy status to other antibiotic agents; Z89.411 Acquired absence of right great toe; W45.0XXA Nail entering through skin, initial encounter; Y92.009 Unspecified place in unspecified non-institutional (private) residence as the place of occurrence of the external cause

== ENCOUNTER 2018-10-28 16:23 | Inpatient (IN) | payer MEDICARE ==
--- NOTE | 2018-10-28 16:25 | HP ---
SUPERVISING PHYSICIAN: Eric William M.D. CHIEF COMPLAINT: Diabetic ulcer to right foot. HISTORY OF PRESENT ILLNESS: Mr. Gaines is a 74 year-old male patient who has a history of diabetes mellitus that is poorly controlled. In fact his last A1c was right around 11. He has a longstanding history of having a diabetic ulcer and osteomyelitis involving the right great toe in the last year. He ended up having to have the toe amputated and advanced wound care done due to Methicillin resistant Staphylococcus aureus infection which he had done at [facility]. He had finished his antibiotic treatment and had gone home. 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 He went home and noticed that his sock was covered in blood at which time he went to the [facility] At that time he was started on antibiotics with Amoxicillin and Ciprofloxacin. He was to followup with Carlos Poe, nurse practitioner, and to get into wound care at [place] which he did. He ran out of prescription medications approximately a week ago. This past Saturday he went to the clinic at [facility] and saw Dr. Wilkinson when again it was noted that he had a full thickness diabetic ulcer again involving the area of the great toe that was amputated. He was started on Levaquin and reported back for followup today, and it was noted that the wound was not healing as anticipated. Culture results done on initial admission showed that he was growing MRSA that was sensitive to vancomycin and resistant to Levaquin. Dr. Wilkinson requested that he be admitted for initiation of vancomycin for underlying cellulitis with concerns for possible osteomyelitis due to a full thickness diabetic ulcer that has been nonhealing over the last week or so. He was admitted in stable condition. PAST MEDICAL HISTORY: 1. Cellulitis of the right foot and osteomyelitis resulting in amputation of the right great toe secondary to complications from diabetes and diabetic ulcer. 2. Diabetes mellitus type 2, poorly controlled. Last A1c in the clinic showing to be 11. 3. Previous myocardial infarction in 2008 and 2010 with coronary artery stent placement. PAST SURGICAL HISTORY: 1. Amputation of right great toe 7 years previously. 2. Coronary artery stent placements. 3. Right knee arthroscopic procedures. 4. Repair of artery in the left arm as a teenager. CURRENT MEDICATIONS: 1. Zinc 50 mg daily. 2. Multivitamin 1 tablet daily. 3. Lantus 35 units subcue daily. 4. Plavix 75 mg daily. 5. Cinnamon 1,000 mg daily. 6. Vitamin D3 1,000 units daily. 7. Atorvastatin 40 mg daily. 8. Aspirin 41 mg daily. 9. Vitamin C 500 mg daily. ALLERGIES: CEPHALEXIN. FAMILY HISTORY: Father at age 85. Mother at age 85, both from myocardial infarction. He has 2 sons and 1 daughter who are both healthy. 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 He is and currently lives in [place]. He does have a history of past smoking cigars but quit in his 40s as well as a significant history of alcoholism, but has not had an alcoholic drink in well over 40 years. Denies any illicit drug use. REVIEW OF SYSTEMS: CONSTITUTIONAL: Denies any fever or chills, body aches, general malaise. HEENT: Denies any nasal congestion, ear aches, sore throat, headaches. RESPIRATORY: Denies any shortness of breath, coughing, wheezing. CARDIOVASCULAR: Denies any chest pains, palpitations, peripheral edema or syncopal episodes. GASTROINTESTINAL: Denies any nausea, vomiting, diarrhea, constipation or abdominal pain. GENITOURINARY: Denies any dysuria, hematuria, polyuria or other urinary symptoms. EXTREMITIES: As noted in history of present illness. Diabetic ulcer to the right foot. NEUROLOGIC: Denies any syncopal episodes, seizure activity, ataxia or other neurological deficits. PHYSICAL EXAMINATION: VITAL SIGNS: Temperature 97.9, pulse 84, blood pressure 142/79, respirations 20, satting 99% on room air. Admission weight 79.8 kg. GENERAL: The patient is well nourished, well hydrated. Appears to be in no acute distress. He is alert. HEENT: Tympanic membranes are clear bilaterally. Oropharynx was pink and moist without any lesions. NECK: Supple, non-tender. Full range of motion. No jugular venous distention. CHEST: Lungs are clear to auscultation bilaterally without any rhonchi, wheezing or rales. CARDIOVASCULAR: Regular rate and rhythm without appreciable murmurs, gallops, or rubs. ABDOMEN: Soft, non-tender. Positive bowel sounds. EXTREMITIES: There is no clubbing, cyanosis or edema. Right foot noted amputation of right great toe with a diabetic full thickness ulcer to the bottom of the foot just distal overlying the past surgical scar that shows some purulent drainage, very minimal erythema. Wound was cultured in the clinic. I did not probe or explore it. Will wait to have Dr. Valdivia consult to see if he needs to do any further debridement. At this time the wound appears to be very clean, just not healing. NEUROLOGIC: Cranial nerves II-XII are grossly intact. He is alert and oriented times three. LABORATORY: White count 6,100, hemoglobin 13.3, hematocrit 39.5. Differential shows to be without a left shift. Chemistries show normal electrolytes. BUN 17, creatinine 0.89. Blood sugar was 346. Liver functions are showing to be all within normal limits except for alkaline phosphatase which was 139. MICROBIOLOGY: Blood cultures are collected in the clinic. Wound culture is pending from the clinic which per Dr. Wilkinson's report showed positive MRSA and sensitive to vancomycin. RADIOLOGY: CT of the lower extremity right foot shows amputation of the right ray from the middle aspect to the first metatarsal distally. No periosteal reaction or definite marrow attenuation abnormality to suggest acute osteomyelitis. There is no fracture or dislocation seen. There was soft tissue stranding of the subcutaneous and deep fat but no fluid collection seen. Final impression was no evidence of followup, abscess or osteomyelitis. ASSESSMENT: 1. Full thickness diabetic ulcer involving the right foot having failed to respond to outpatient treatment measures with cultures showing positive Methicillin resistant Staphylococcus aureus culture requiring initiation of IV antibiotics for more aggressive treatment. 2. Diabetes mellitus type 2 on insulin therapy complicating #1 and poorly controlled. 3. History of hypertension. 4. History of previous myocardial infarctions times 2, one in 2008 and one in 2010 with previous stent placement and on Plavix. PLAN: The patient is going to be admitted directly from the clinic for initiation or wound management, consultation with Dr. Valdivia and initiation of vancomycin per Pharmacy protocol. He will be on DVT prophylaxis per protocol as well as insulin sliding scale per protocol. Will initiate antibiotic therapy. Will anticipate his length of stay to be at least 2 to 3 days. Again, I have ordered a consultation with Dr. Valdivia. Will resume his medications once those have been updated and verified as appropriate. He will be provided pain management and antiemetics as needed. Will plan to repeat labs in the morning. Until he can transition back to outpatient management will continue to monitor and treat as needed. #[id number] [facility]
[2018-10-28] MEDS ORDERED: MAGNESIUM HYDROXIDE 30 ML UD PO PRN (16:36)
[2018-10-28] MEDS ORDERED: ALUM & MAG HYDROX-SIMETHICONE 30 ML UD PO PRN (16:36)
[2018-10-28] MEDS ORDERED: DEXTROSE 50% 25 GM/50 ML SYG IV PRN (16:36)
[2018-10-28] MEDS ORDERED: ACETAMINOPHEN 325 MG TAB PO PRN (16:36)
[2018-10-28] MEDS ORDERED: MORPHINE SULFATE INJ 10 MG/ML VIAL IV PRN (16:36)
[2018-10-28] MEDS ORDERED: SODIUM CHLORIDE 0.9% (FLUSH) 10 ML SYG IV PRN (16:36)
[2018-10-28] MEDS ORDERED: GLUCAGON INJ 1 MG VIAL SUBCU PRN (16:36)
[2018-10-28] MEDS ORDERED: ONDANSETRON INJ 4 MG/2 ML VIAL IV PRN (16:36)
[2018-10-28] MEDS ORDERED: VANCOMYCIN PER PHARMACY INJ SCH (17:00)
[2018-10-28] MEDS ORDERED: IV SET AND CAP CHANGE INJ INJ SCH (17:00)
[2018-10-28] MEDS ORDERED: VANCOMYCIN HCL INJ 1,000 MG VIAL IVPB ONE ×2 (18:01→18:54)
[2018-10-28] MEDS ORDERED: SODIUM CHLORIDE 0.9% 250ML 250 ML ONE ×2 (18:01→18:53)
[2018-10-28] MEDS: VANCOMYCIN HCL INJ 1,000 MG in SODIUM CHLORIDE 0.9% 250ML 250 ML IVPB SCH (18:07)
[2018-10-28] MEDS ORDERED: INSULIN LISPRO 100 UNITS/ML PEN SUBCU ONE (18:07)
[2018-10-28] MEDS: INSULIN DETEMIR 100 UNITS/ML PEN SUBCU SCH ×2 (18:19→20:58)
[2018-10-28] MEDS ORDERED: OMEPRAZOLE CAP 20 MG CAP ONE (18:53)
--- NOTE | 2018-10-28 19:43 | CT ---
EXAM DESCRIPTION: Lower Extremity CLINICAL HISTORY: 73 years Male right foot, diabetic ulcer rt great toe amputation COMPARISON: None. TECHNIQUE: Contiguous axial CT images obtained through the right foot without IV contrast. Reformatted images obtained. This exam was performed according to our department optimization program which includes automated exposure control, adjustment of the mA and/or kv according to patient size and/or use of iterative reconstruction technique. All CT scanners at this facility use dose modulation, iterative reconstruction, and/or weight based dosing when appropriate to reduce radiation dose to as low as reasonably achievable (ALARA). FINDINGS: There is amputation of the first ray from the mid aspect of the first metatarsal distally. There is no periosteal reaction or definite marrow attenuation abnormality to suggest acute osteomyelitis. No fracture or dislocation is seen.. There is soft tissue stranding of the subcutaneous and deep fat but no fluid collection is seen. IMPRESSION: No evidence of fracture, abscess or osteomyelitis. Electronically signed by: Jem Hill 10/28/2018 7:42 PM CDT
[2018-10-28] MEDS: INSULIN LISPRO 100 UNITS/ML PEN SUBCU SCH (20:55)
[2018-10-28] MEDS: ENOXAPARIN SODIUM 40 MG/0.4 ML SYG SUBCU SCH (20:58)
[2018-10-29] MEDS: VANCOMYCIN HCL INJ 1,000 MG in SODIUM CHLORIDE 0.9% 250ML 250 ML IVPB SCH (06:08)
[2018-10-29] MEDS: OMEPRAZOLE CAP 20 MG CAP PO SCH (06:08)
[2018-10-29] MEDS: INSULIN LISPRO 100 UNITS/ML PEN SUBCU SCH ×8 (07:31→20:58)
[2018-10-29] MEDS ORDERED: VANCOMYCIN HCL INJ 1,000 MG, VANCOMYCIN HCL INJ 250 MG in SODIUM CHLORIDE 0.9% 250ML 25... IVPB SCH (09:00)
--- NOTE | 2018-10-29 09:50 | CONS ---
DATE OF CONSULTATION: 10/29/18 HISTORY OF PRESENT ILLNESS: The patient is a 73-year-old male who I have seen previously. He is a diabetic which is poorly controlled. He has a history of a previous case of osteomyelitis involving his right great toe which required amputation. This was about 5 to 7 years ago. Several weeks ago, he was working at his yazidism and apparently got a breana nail in his shoe which he was not aware of and at the end of the day, his sock was bloody. He presented to the Emergency Room where he was given antibiotics and followed up with Carlos Poe. Eventually, the antibiotics were either discontinued or the patient failed to obtain refill. He developed purulent drainage again and presented to [facility] and saw Dr. Wilkinson who did a culture, which is growing MRSA that is not sensitive to the oral Levaquin that he was given and is sensitive to vancomycin. He was admitted for IV vancomycin therapy. PAST MEDICAL HISTORY: 1. Myocardial infarctions. PAST SURGICAL HISTORY: 1. Coronary artery stenting. 2. Right knee arthroscopy. 3. Artery injured as a child, left arm. MEDICATIONS: 1. Zinc. 2. Lantus. 3. Plavix. 4. Cinnamon. 5. Vitamin D3. 6. Atorvastatin. 8. Aspirin. 9. Vitamin C. ALLERGIES: CEPHALEXIN. FAMILY HISTORY: Positive for coronary artery disease. 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 He drank heavily, but has not for many years. He quit smoking 35 years ago. REVIEW OF SYSTEMS: He denies fever or chills. He denies difficult pain. He denies shortness of breath, chest pain, nausea, vomiting, change in his bowel habits or weight loss. He denies urinary symptoms. PHYSICAL EXAMINATION: GENERAL: The patient is awake, alert, cooperative, in no acute distress. VITAL SIGNS: The patient is currently afebrile, normotensive. HEENT: Sclerae nonicteric. Mucous membranes moist. NECK: Without adenopathy. BACK: Without CVA tenderness. CHEST: Equal breath sounds anteriorly. HEART: Regular rate and rhythm. ABDOMEN: Benign. EXTREMITIES: The right lower extremity shows an ulceration over the first right metatarsal head laterally. It is clean. It has a small amount of drainage and exudate in the tip of the wound. There is no surrounding erythema, cyanosis, ecchymosis, crepitus or fluctuance. There is also just proximal to this and laterally a puncture wound which again has no surrounding erythema, etc. There is some question whether this has been drained. LABORATORY: White count 6,000 with no left shift. Blood sugar was 346. Liver functions within normal limits. Culture is said to be growing MRSA sensitive to vancomycin and resistant to Levaquin. I am uncertain whether this is from the ulceration or from the puncture wound. RADIOLOGY: CT scan of the right leg revealed no signs of osteomyelitis, abscess or fracture. ASSESSMENT: 1. Cellulitis of the right foot status post puncture wound. 2. Uncontrolled diabetes. 3. Culture positive for methicillin-resistant Staphylococcus aureus that is resistant to Levaquin and sensitive to vancomycin. PLAN: Continue the vancomycin and local care and aggressive management of his blood sugars. Then, consider outpatient IV vancomycin therapy. #[id number] [facility]
--- NOTE | 2018-10-29 11:43 | PN ---
SUPERVISING PHYSICIAN: Leah William MD DATE: 10/29/18 SUBJECTIVE: The patient is lying in bed asleep. He awakens easily. He has no complaints of nausea, vomiting, diarrhea, constipation or shortness of breath. We discussed his plan of care including outpatient vancomycin infusion. His only request is that he not have a PICC line as he has had several of those in the past and would rather just have an IV line. OBJECTIVE: VITAL SIGNS: Temperature 97.9. Heart rate 80. Blood pressure 134/74. Respiratory rate 16. O2 saturation 95% on room air. RESPIRATORY: Essentially clear to auscultation bilaterally. CARDIAC: Regular rate and rhythm. GASTROINTESTINAL: Abdomen is soft, nondistended, nontender. Bowel sounds are positive. EXTREMITIES: The right lower extremity has an ulcerative colitis over the first right metatarsal. It is clean with a very small amount of purulent drainage. There is no surrounding erythema or fluctuance. Just proximal to the fourth metatarsal, there is a small puncture wound. There is no drainage, erythema or fluctuance at that site. NEUROLOGIC: Awake, alert and oriented times three. LABORATORY: Blood sugars have run between 212 and 346. C-reactive protein is less than 0.5. Culture results show MRSA. It is resistant to all medications tested with the exception of vancomycin. All other labs and films have been reviewed via the EMR. ASSESSMENT: 1. Full thickness diabetic ulcer involving the right foot having failed to respond to outpatient treatment measures with cultures showing positive Methicillin resistant Staphylococcus aureus. The cultures show resistance to all medications tested except vancomycin. 2. Diabetes mellitus, type 2, on insulin therapy complicating #1 and poorly controlled with a hemoglobin A1c of 11. 3. History of hypertension. 4. History of previous myocardial infarctions times 2, one in 2008 and one in 2010 with previous stent placement and on Plavix. 5. History of osteomyelitis. PLAN: We will continue present supportive care including the vancomycin treatment. Once he is stabilized with his vancomycin trough, we will plan for 10 to 14 days total antibiotic treatment. I may touch base with Dr. Flood, infectious diseases, tomorrow to see if she agrees with the plan. I will continue to monitor his blood sugars closely. At this point, he is normally on 35 units of long-acting insulin daily. His blood sugars have run a little bit high although he has not gotten his morning dosing today. I will have that at 30 units once a day as he is eating much better here in the hospital than he does at home. We may need to adjust his insulin over the next couple of days to get him leveled out and he can followup with Dr. Wilkinson for further management of his insulin. I will hold on lab until tomorrow and hopefully discharge to outpatient vancomycin treatment. We will continue to monitor the patient closely and follow as needed. #[id number] [facility]
[2018-10-29] MEDS: CLOPIDOGREL 75 MG TAB PO SCH (12:47)
[2018-10-29] MEDS ORDERED: SODIUM CHLORIDE 0.9% 250ML 250 ML ONE ×2 (15:36→19:33)
[2018-10-29] MEDS ORDERED: VANCOMYCIN HCL INJ 500 MG VIAL ONE (15:36)
[2018-10-29] MEDS ORDERED: VANCOMYCIN HCL INJ 1,000 MG VIAL IVPB ONE ×2 (15:37→19:34)
[2018-10-29] MEDS: VANCOMYCIN HCL INJ 1,000 MG, VANCOMYCIN HCL INJ 250 MG in SODIUM CHLORIDE 0.9% 250ML 25... IVPB SCH (17:35)
[2018-10-29] MEDS: ENOXAPARIN SODIUM 40 MG/0.4 ML SYG SUBCU SCH (20:35)
[2018-10-29] MEDS: ATORVASTATIN 20 MG TAB PO SCH (20:36)
[2018-10-29] MEDS: INSULIN DETEMIR 100 UNITS/ML PEN SUBCU SCH (20:58)
[2018-10-30] MEDS: OMEPRAZOLE CAP 20 MG CAP PO SCH (06:12)
[2018-10-30] MEDS ORDERED: VANCOMYCIN HCL INJ 500 MG VIAL ONE ×3 (06:12→19:44)
[2018-10-30] MEDS: VANCOMYCIN HCL INJ 1,000 MG, VANCOMYCIN HCL INJ 250 MG in SODIUM CHLORIDE 0.9% 250ML 25... IVPB SCH ×2 (06:15→18:24)
[2018-10-30] MEDS: INSULIN LISPRO 100 UNITS/ML PEN SUBCU SCH ×7 (07:32→21:01)
[2018-10-30] MEDS: CLOPIDOGREL 75 MG TAB PO SCH (10:26)
[2018-10-30] MEDS: ASPIRIN (CHEWABLE) 81 MG TAB PO SCH (10:26)
--- NOTE | 2018-10-30 11:58 | PN ---
SUPERVISING PHYSICIAN: Leah William MD DATE: 10/30/18 SUBJECTIVE: The patient is lying in bed asleep. He awakens easily. He is feeling much better. We discussed his discharge plan including outpatient vancomycin therapy and he agreed to having it twice daily over the next 10 days and followup with Dr. Wilkinson after that. We will plan for discharge tomorrow if his labs and vancomycin trough are okay. OBJECTIVE: VITAL SIGNS: Temperature 98. Heart rate 91. Blood pressure 162/89. Respiratory rate 18. O2 saturation 98% on room air. RESPIRATORY: Essentially clear to auscultation bilaterally. CARDIAC: Regular rate and rhythm. EXTREMITIES: His wound on his right foot has a dressing on it. There is no drainage, no fluctuance and no erythema. It is slightly improved from yesterday. It is very minimally tender to palpation. The puncture wound to the fourth toe has no drainage, no erythema and nontender to palpation. NEUROLOGIC: Awake, alert and oriented times three. LABORATORY: Blood sugars have run between 78 and 353. All other labs and films have been reviewed via the EMR. ASSESSMENT: 1. Full thickness diabetic ulcer involving the right foot having failed to respond to outpatient treatment measures with cultures showing positive Methicillin resistant Staphylococcus aureus. The cultures show resistance to all medications tested except vancomycin. 2. Diabetes mellitus, type 2, on insulin therapy complicating #1 and poorly controlled with a hemoglobin A1c of 11. 3. History of hypertension. 4. History of previous myocardial infarctions times 2, one in 2008 and one in 2010 with previous stent placement and on Plavix. 5. History of osteomyelitis. PLAN: We will continue present supportive care. I spoke to Dr. Flood this morning and given his diabetes as well as history of osteomyelitis and MRSA, she recommended the patient have 14 total days of vancomycin therapy and that he be reevaluated on Day 14. If there any questions that there may continue to be infection, she recommended an additional 7 days of treatment. He has an appointment with Dr. Wilkinson on 11/11/18 which will be after 14 days of treatment. He can evaluate the wound at that time. Otherwise, his routine long-acting insulin will continue at 30 units daily. He usually gets 35, but his diet is quite different here in the hospital. I encouraged him to have better diabetic control and we discussed some treatment plans. He usually gets 8 units of short-acting insulin with his meals. I have decreased that to 2 plus sliding scale. We will monitor that overnight for decisions on what to send him home on. Otherwise, we will plan for discharge tomorrow after he get his morning vancomycin. He will return to the hospital twice daily for his infusion until 11/11/18. I have done lab for in the morning. We will continue to monitor the patient closely and follow as needed. [facility][id number] [facility]
[2018-10-30] MEDS ORDERED: SODIUM CHLORIDE 0.9% 250ML 250 ML ONE ×2 (18:03→19:44)
[2018-10-30] MEDS ORDERED: VANCOMYCIN HCL INJ 1,000 MG VIAL IVPB ONE ×2 (18:04→19:45)
[2018-10-30] MEDS: INSULIN DETEMIR 100 UNITS/ML PEN SUBCU SCH (21:00)
[2018-10-30] MEDS: ATORVASTATIN 20 MG TAB PO SCH (21:01)
[2018-10-30] MEDS: ENOXAPARIN SODIUM 40 MG/0.4 ML SYG SUBCU SCH (21:02)
[2018-10-31] MEDS: VANCOMYCIN HCL INJ 1,000 MG, VANCOMYCIN HCL INJ 250 MG in SODIUM CHLORIDE 0.9% 250ML 25... IVPB SCH (05:34)
[2018-10-31] MEDS: OMEPRAZOLE CAP 20 MG CAP PO SCH (06:18)
[2018-10-31 06:20] VITALS: TEMP 98.3
[2018-10-31] MEDS: INSULIN LISPRO 100 UNITS/ML PEN SUBCU SCH ×4 (07:31→12:32)
[2018-10-31] MEDS: CLOPIDOGREL 75 MG TAB PO SCH (08:34)
[2018-10-31] MEDS: ASPIRIN (CHEWABLE) 81 MG TAB PO SCH (08:34)
[2018-10-31] MEDS ORDERED: MAGNESIUM SULFATE PREMIX 2GM 2 GM in PREMIX BAG 1 BAG IVPB ONE (09:03)
[2018-10-31 10:12] VITALS: BP 157/86; O2SAT 95
[2018-10-31] MEDS ORDERED: MAGNESIUM SULFATE PREMIX 2GM 50 ML IVPB ONE (11:20)
--- NOTE | 2018-11-01 20:54 | DS ---
SUPERVISING PHYSICIAN: Eric William M.D. DISCHARGE DIAGNOSIS: 1. Full thickness diabetic ulcer involving the right foot having failed to respond to outpatient treatment measures with cultures showing positive Methicillin resistant Staphylococcus aureus. The cultures show resistance to all medications tested except vancomycin. 2. Diabetes mellitus, type 2, on insulin therapy complicating #1 and poorly controlled with a hemoglobin A1c of 11. 3. History of hypertension. 4. History of previous myocardial infarctions times 2, one in 2008 and one in 2010 with previous stent placement and on Plavix. 5. History of osteomyelitis. HISTORY OF PRESENT ILLNESS: This is a 73 year-old male patient who has a history of diabetes mellitus that is poorly controlled. His last hemoglobin A1c was around 11. He has had osteomyelitis in the past as well as diabetic ulcers. He had one that involved the great toe last year that ended up being amputated. He also has a history of Methicillin resistant Staphylococcus aureus infections. 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 He went to the . . He was put on antibiotics of Amoxicillin and Ciprofloxacin. He followed up with Carlos Poe as well as Wound Care in [place]. Approximately a week ago his prescription medications were up and he went to [facility] and saw Dr. Wilkinson. He had a full thickness diabetic ulcer involving the area of the great toe that had been amputated. He was started on Levaquin. At followup it was noted that the wound had not been healing and was resistant to Levaquin. It was only sensitive to vancomycin per the culture and sensitivity. The patient was admitted to the hospital for failed outpatient treatment and to continue on vancomycin for the diabetic ulcer with concerns for possible osteomyelitis. HOSPITAL COURSE: He was admitted to the hospital. Dr. Valdivia was consulted and he felt that there was no surgical procedure that needed to be done and he could continue on his vancomycin per Pharmacy protocol. He was also placed on DVT prophylaxis as well as sliding scale insulin. His insulin was adjusted here as his diet was quite different than it is at home. He got 2 units 3 times a day in addition to his sliding scale insulin. He normally gets long-acting insulin at 35 units daily and it was decreased to 30 units here in the hospital. He had a lower extremity CT exam and there were no concerns for osteomyelitis of that foot. I spoke with Dr. Flood, Infectious Diseases, and she recommended that the patient have a minimum of 14 days of total vancomycin treatment, but he may need 21 days due to his complicated history, including history of MRSA infection, osteomyelitis and poor diabetic control. His clinical condition has improved. His foot wound has improved. He has agreed to come to the hospital for vancomycin treatment twice a day. He will be discharged home today in stable condition. LABORATORY: Initial WBCs are 6.1, today they are 4.9. Stable hemoglobin and hematocrit of 13.3 and 38.8. Blood sugars have run between 78 and 353, the last 2 have been 253 and 149. Electrolytes have basically been within normal limits, except his magnesium is slightly low today at 1.6. Initial alkaline phosphatase was 139, today it is 105. RADIOLOGY: Lower extremity CT shows there is an amputation of the first great toe from the mid aspect of the first metatarsal distally. There is no periosteal reaction or definitive marrow attenuation abnormality to suggest acute osteomyelitis. No fracture or dislocation is seen. There is soft tissue stranding of the subcutaneous and deep fat but no fluid collection is seen. Impression: No evidence of fracture, abscess or osteomyelitis. DISCHARGE PLAN: The patient will be discharged home in stable condition. He is to resume his previous medications, including his insulin therapy. He will need to be adjusted on his insulin at some point when he sees his primary care provider, Dr. Wilkinson due to his elevated hemoglobin A1c, but with his infection I did not choose to change any of his diabetic medications. He will get vancomycin twice daily here at the hospital as an outpatient. He has been ordered for 21 total days of outpatient vancomycin. He will see Dr. Wilkinson on day [address] Flood, Infectious Diseases, recommended that he be seen after 2 weeks of antibiotic therapy and if there was any concern for continuing infection that he would need that additional week for vancomycin. I have instructed the patient to go to [facility] the day prior to his appointment on the to get a foot x-ray so it will be available for Dr. Wilkinson to see at his appointment. He is to do daily diabetic foot examinations. He is to return to the hospital or call Dr. Wilkinson with any problems or complications. DISCHARGE MEDICATIONS: 1. Plavix. 2. Vitamin D3. 3. Atorvastatin. 4. Cinnamon. 5. Vitamin C. 6. Low dose aspirin. 7. Zinc. 8. Multivitamins. 9. Lantus insulin. 10. Vancomycin. [facility][id number] [facility]
== END 2018-10-31 12:35 | disposition home or self-care (01) | DRG 566 ==
LOC: MS 16:23
PROVIDERS: ADMIT Family Medicine; ATTEND Nurse Practitioner Family
DX: T87.89 Other complications of amputation stump (principal); L97.519 Non-pressure chronic ulcer of other part of right foot with unspecified severity; E11.621 Type 2 diabetes mellitus with foot ulcer; B95.62 Methicillin resistant Staphylococcus aureus infection as the cause of diseases classified elsewhere; I10 Essential (primary) hypertension; I25.2 Old myocardial infarction; F10.21 Alcohol dependence, in remission; Z95.5 Presence of coronary angioplasty implant and graft; Z79.02 Long term (current) use of antithrombotics/antiplatelets; Z89.411 Acquired absence of right great toe; Z16.23 Resistance to quinolones and fluoroquinolones; Z79.82 Long term (current) use of aspirin; Z79.4 Long term (current) use of insulin; Z87.891 Personal history of nicotine dependence; Y83.5 Amputation of limb(s) as the cause of abnormal reaction of the patient, or of later complication, without mention of misadventure at the time of the procedure; Y92.9 Unspecified place or not applicable

== ENCOUNTER → 2018-11-27 | Outpatient (CLI) | payer MEDICARE ==
--- NOTE | 2018-11-28 11:13 | US ---
EXAM DESCRIPTION: Extremity,Lower [place] Arteries: Ultrasound. CLINICAL HISTORY: UNSPEC PVD. Right great toe amputation. Stent in right lower extremity, right anterior tibial artery to foot. COMPARISON: Bilateral lower extremity CTA runoff 11/25/2017. TECHNIQUE: Doppler evaluation of the bilateral lower extremity arterial flow waveforms and velocities. FINDINGS: Arterial waveforms in the right lower extremity are triphasic from the right common femoral artery through the right popliteal artery. Biphasic right peroneal artery. High velocity and monophasic right PARKING TECHNICIAN. Monophasic and decreased velocity right DPA. Echogenic stent is visible. No flow in the usual location of the right DPA.. Arterial waveforms in the left lower extremity are triphasic or biphasic from the left common femoral artery through the left peroneal artery. Monophasic with normal velocity left posterior tibial artery. Monophasic and decreased velocity left DPA.. Comments: High velocity and monophasic waveform in the proximal right PARKING TECHNICIAN could be due to more proximal stenosis in the PARKING TECHNICIAN. 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 Previous stent for the right DPA. Electronically signed by: Jem Mcginnis MD 11/28/2018 11:11 AM CDT
== END ==
LOC: US 10:26
PROVIDERS: ATTEND Family Medicine
DX: I70.203 Unspecified atherosclerosis of native arteries of extremities, bilateral legs (principal)

== ENCOUNTER → 2018-12-08 | Outpatient (CLI) | payer MEDICARE ==
--- NOTE | 2018-12-10 06:33 | MRI ---
EXAM DESCRIPTION: Lower Extremity Joint,Right CLINICAL HISTORY: 73 years Male, DM WITH FOOT ULCER COMPARISON: CT of the left foot/ankle dated October 28, 2018. TECHNIQUE: Noncontrast multiplanar multisequence magnetic resonance imaging of the left midfoot and forefoot was performed. FINDINGS: Persistent abnormal hypointense T1 signal with elevated inversion recovery and T2 signal is present within the distal resection site of the first metatarsal. This finding is consistent with persistent osteomyelitis. Adjacent to the area of abnormal bone signal is a fluid collection suspicious for abscess measuring 1.9 x 0.6 x 1.8 cm respectively. No other drainable fluid collections are present. A tarsal boss is present with associated reactive osteoarthritic signal fourth tarsal metatarsal joint. Diffuse mild myositis and cellulitis of the forefoot. Flexor and extensor tendons grossly intact. IMPRESSION: Persistent osteomyelitis signal distal resection site of the first metatarsal with adjacent small fluid collection/abscess. Fourth digital tarsal boss and associated reactive osteoarthritis. Electronically signed by: Erlin Vargas MD 12/10/2018 6:29 AM CDT
== END ==
LOC: MRI 12:58
PROVIDERS: ATTEND Internal Medicine Infectious Disease
DX: E11.621 Type 2 diabetes mellitus with foot ulcer (principal); M86.8X7 Other osteomyelitis, ankle and foot; M19.071 Primary osteoarthritis, right ankle and foot

== ENCOUNTER 2019-01-11 14:23 | Emergency (ER) | payer MEDICARE ==
[2019-01-11] MEDS ORDERED: ONDANSETRON INJ 4 MG/2 ML VIAL IV ONE (14:46)
--- NOTE | 2019-01-11 14:51 | ED.PDOC ---
History of Present Illness - General Chief Complaint: General Stated Complaint: nausea and vomiting, chest pain Time Seen by Provider: 01/11/19 14:44 Source: patient Exam Limitations: no limitations - History of Present Illness Initial Comments: Patient presents with N/V x 4 days. He has had mild generalize abdominal cramping as well. No diarrhea. Last BM was yesterday and was normal. Last meal was part of a protein shake this morning Has IDDM and says that his sugars have been running "low" recently. Has had AMI x two with CABG and stent placement. He said this morning when he was feeling nauseous, he felt a fleeting sharp pain in his chest just under his sternum. This scared him so he called EMS. The pain was non-radiating with no previous episodes. No associated symptoms except the N/V. Denies history of abdominal surgeries. No other complaints. Timing/Duration: other - 4 days for the N/V. Chest pain "this morning" Severity: mild Improving Factors: nothing Worsening Factors: nothing Associated Symptoms: other - as in HPI Allergies/Adverse Reactions: Allergies Cephalexin [From Keflex] Allergy (Verified 10/28/18 16:59) Home Medications: Ambulatory Orders Ascorbic Acid [Vitamin C] 500 mg PO DAILY 10/28/18 Aspirin [Aspirin Low Strength] 81 mg PO DAILY 10/28/18 Atorvastatin Calcium 40 mg PO BEDTIME 10/28/18 Cholecalciferol [D3 Adult Gummy] 1,000 unit PO DAILY 10/28/18 Cinnamon 1,000 mg PO DAILY 10/28/18 Clopidogrel Bisulfate 75 mg PO DAILY 10/28/18 Insulin Glargine 100U/ml [Lantus] 35 unit SUBCU DAILY 10/28/18 Multiple Vitamin [Multi Vitamin] 1 tab PO DAILY 10/28/18 Zinc 50 mg PO DAILY 10/28/18 Vancomycin Per Pharmacy 1 ea INJ ONCE each 10/31/18 Ondansetron HCl [Zofran] 4 mg PO Q6HRS PRN #10 tab 01/11/19 Ondansetron Odt (ER Disp) [Zofran ODT (ER DISP)] 4 mg PO ONCE PRN #1 tab 01/11/19 Review of Systems - Review of Systems Constitutional: States: no symptoms reported EENTM: States: no symptoms reported Respiratory: States: no symptoms reported Cardiology: States: see HPI Gastrointestinal/Abdominal: States: see HPI Genitourinary: States: no symptoms reported Musculoskeletal: States: no symptoms reported Skin: States: no symptoms reported Neurological: States: no symptoms reported Endocrine: States: no symptoms reported Hematologic/Lymphatic: States: no symptoms reported Past Medical History (General) - Patient Medical History Hx Seizures: No Hx Stroke: Yes Hx Asthma: Yes Hx of COPD: No Hx Cardiac Disorders: Yes - [place] x2, stents, bypass Hx Congestive Heart Failure: No Hx Pacemaker: No Hx Hypertension: Yes Hx Diabetes: Yes Hx MRSA: Yes MRSA Source:: Foot - Vaccination History Hx Tetanus, Diphtheria Vaccination: Yes - Social History Hx Tobacco Use: Yes Hx Alcohol Use: No - quit 40 yrs ago Hx Substance Use: No Hx Physical Abuse: No Hx Emotional Abuse: No Family Medical History - Family History Father Family History: Unknown Hx Cardiac Disease: Yes - mi-mom/dad Hx Family Diabetes: Yes - dad,brother Hx Family Cancer: Yes - mom-gastric Physical Exam - Physical Exam General Appearance: Alert Eye Exam: bilateral normal Ears, Nose, Throat: normal ENT inspection Neck: non-tender, full range of motion, supple Respiratory: lungs clear, normal breath sounds Cardiovascular/Chest: normal peripheral pulses, regular rate, rhythm, no edema Gastrointestinal/Abdominal: non tender, soft, other - decreased bowel sounds Back Exam: normal inspection, no CVA tenderness Extremity: normal range of motion, non-tender, normal inspection Neurologic: no motor/sensory deficits, alert, normal mood/affect, oriented x 3 Skin Exam: normal color Lymphatic: no adenopathy Progress - Progress Progress: 01/11/19 18:56 Laboratory Tests 01/11/19 01/11/19 01/11/19 14:44 14:45 14:45 WBC 5.8 RBC 4.19 L Hgb 12.7 L Hct 36.7 L MCV 87.6 MCH 30.3 MCHC 34.6 RDW 13.8 Plt Count 128 L MPV 8.5 Absolute Neuts (auto) 4.70 Absolute Lymphs (auto) 0.60 L Absolute Monos (auto) 0.50 Absolute Eos (auto) 0.10 Absolute Basos (auto) 0.00 Neutrophils % 79.8 H Lymphocytes % 9.6 L Monocytes % 7.8 Eosinophils % 2.5 Basophils % 0.3 PT INR PTT (SP) Sodium 135 Potassium 4.3 Chloride 101 Carbon Dioxide 22 Anion Gap 16.3 BUN 25 H Creatinine 1.01 BUN/Creatinine Ratio 24.8 H POC Glucose Random Glucose 112 H Serum Osmolality 275.3 Calcium 9.2 Magnesium 1.4 L Total Bilirubin 0.5 AST 24 ALT 23 Alkaline Phosphatase 78 Creatine Kinase 50 CK-MB (CK-2) 3.6 CK-MB (CK-2) % Not Reportable Troponin I < 0.02 Serum Total Protein 6.7 Albumin 3.6 Globulin 3.1 Albumin/Globulin Ratio 1.2 Lipase Urine Color Urine Appearance Urine pH Ur Specific [place] Urine Protein Urine Glucose (UA) Urine Ketones Urine Blood Urine Nitrite Urine Bilirubin Urine Urobilinogen Ur Leukocyte Esterase Urine RBC Urine WBC Ur Epithelial Cells Urine Bacteria 01/11/19 01/11/19 01/11/19 14:45 14:46 14:52 WBC RBC Hgb Hct MCV MCH MCHC RDW Plt Count MPV Absolute Neuts (auto) Absolute Lymphs (auto) Absolute Monos (auto) Absolute Eos (auto) Absolute Basos (auto) Neutrophils % Lymphocytes % Monocytes % Eosinophils % Basophils % PT 10.8 INR 1.08 PTT (SP) 26.3 Sodium Potassium Chloride Carbon Dioxide Anion Gap BUN Creatinine BUN/Creatinine Ratio POC Glucose 126 H Random Glucose Serum Osmolality Calcium Magnesium Total Bilirubin AST ALT Alkaline Phosphatase Creatine Kinase CK-MB (CK-2) CK-MB (CK-2) % Troponin I Serum Total Protein Albumin Globulin Albumin/Globulin Ratio Lipase 52 H Urine Color Urine Appearance Urine pH Ur Specific [place] Urine Protein Urine Glucose (UA) Urine Ketones Urine Blood Urine Nitrite Urine Bilirubin Urine Urobilinogen Ur Leukocyte Esterase Urine RBC Urine WBC Ur Epithelial Cells Urine Bacteria 01/11/19 01/11/19 16:40 17:38 WBC RBC Hgb Hct MCV MCH MCHC RDW Plt Count MPV Absolute Neuts (auto) Absolute Lymphs (auto) Absolute Monos (auto) Absolute Eos (auto) Absolute Basos (auto) Neutrophils % Lymphocytes % Monocytes % Eosinophils % Basophils % PT INR PTT (SP) Sodium Potassium Chloride Carbon Dioxide Anion Gap BUN Creatinine BUN/Creatinine Ratio POC Glucose Random Glucose Serum Osmolality Calcium Magnesium Total Bilirubin AST ALT Alkaline Phosphatase Creatine Kinase CK-MB (CK-2) CK-MB (CK-2) % Troponin I < 0.02 Serum Total Protein Albumin Globulin Albumin/Globulin Ratio Lipase Urine Color Yellow Urine Appearance Clear Urine pH 5.[address] [place] 1.010 Urine Protein Negative Urine Glucose (UA) Negative Urine Ketones Negative Urine Blood Negative Urine Nitrite Negative Urine Bilirubin Negative Urine Urobilinogen 0.2 Ur Leukocyte Esterase Negative Urine RBC 0 Urine WBC 0 Ur Epithelial Cells 0 Urine Bacteria 0 EKG showed NSR with no ST changes nor T wave inversions. Troponin x two negative. Patient received Zofran and one liter IV NS and felt better. He did not vomit in the E.D. He did not have chest pain in the E.D. This is not likely cardiac. CT ab/pelvis did not show an explanation for the patient's symptoms. CXR unremarkable. Patient sent with RX for Zofran. Care instructions given. E.R. warnings given. Questions were elicited and answered. Patient voiced understanding and agreement with the plan. Departure - Departure Clinical Impression: Nausea & vomiting Disposition: Discharge to Home or Self Care Condition: Good Departure Forms: ED Discharge - Pt. Copy, Patient Portal Self Enrollment Diet: other - increase oral fluids. Advance diet as tolerated to your normal diabetic diet. Activity: increase activity as tolerated Referrals: Ba Wilkinson MD [Primary Care Provider] - 1-2 Weeks Prescriptions: Ondansetron HCl [Zofran] 4 mg PO Q6HRS PRN #10 tab PRN Reason: Nausea Ondansetron Odt (ER Disp) [Zofran ODT (ER DISP)] 4 mg PO ONCE PRN #1 tab PRN Reason: Nausea Home Medications: Ambulatory Orders Ascorbic Acid [Vitamin C] 500 mg PO DAILY 10/28/18 Aspirin [Aspirin Low Strength] 81 mg PO DAILY 10/28/18 Atorvastatin Calcium 40 mg PO BEDTIME 10/28/18 Cholecalciferol [D3 Adult Gummy] 1,000 unit PO DAILY 10/28/18 Cinnamon 1,000 mg PO DAILY 10/28/18 Clopidogrel Bisulfate 75 mg PO DAILY 10/28/18 Insulin Glargine 100U/ml [Lantus] 35 unit SUBCU DAILY 10/28/18 Multiple Vitamin [Multi Vitamin] 1 tab PO DAILY 10/28/18 Zinc 50 mg PO DAILY 10/28/18 Vancomycin Per Pharmacy 1 ea INJ ONCE each 10/31/18 Ondansetron HCl [Zofran] 4 mg PO Q6HRS PRN #10 tab 01/11/19 Ondansetron Odt (ER Disp) [Zofran ODT (ER DISP)] 4 mg PO ONCE PRN #1 tab 01/11/19 Additional Instructions: Increase oral fluids. Take medications as prescribed. Follow up with your regular doctor in 1 to 2 days. Return to the E.R. for worsening symptoms. Critical Care Note - Critical Care Note Total Time (mins): 65
[2019-01-11] MEDS ORDERED: SODIUM CHLORIDE 0.9% 1000ML 1,000 ML IVS ONE ×2 (15:31→16:39)
--- NOTE | 2019-01-11 15:40 | RAD ---
EXAM DESCRIPTION: Chest,1 View CLINICAL HISTORY: chest pain COMPARISON: September 10, 2017 FINDINGS: Again seen are postoperative changes in the mediastinum. The cardiomediastinal silhouette is unremarkable. There is no airspace consolidation or pleural effusion. The bronchovascular markings are within normal limits, and the lungs are not hyperinflated. There is no pneumothorax or acute fracture. IMPRESSION: Postoperative changes in the mediastinum without acute intrathoracic abnormality. Electronically signed by: Kit Sanchez MD 01/11/2019 3:37 PM CDT
--- NOTE | 2019-01-11 16:33 | CT ---
EXAM DESCRIPTION: CT Abdomen/Pelvis w/Contrast CLINICAL HISTORY: 73 years Male abdominal pain COMPARISON: Axial images from a CTA runoff dated November 25, 2017. TECHNIQUE: Intravenous contrast enhanced axial scans of the abdomen and pelvis were obtained. Sagittal and coronal reformatted images were performed. This exam was performed according to our departmental dose-optimization program, which includes automated exposure control, adjustment of the mA and/or kV according to patient size and/or use of iterative reconstruction technique. FINDINGS: The lung bases are essentially unremarkable, with note of negligible linear stranding. Poststernotomy changes are noted. There may be a minimal hiatus hernia, apparently shown on the previous study. The gallbladder is present. There is slight bilateral perinephric stranding, present previously. Otherwise, the kidneys, liver, spleen, and adrenal glands are unremarkable. The spleen is roughly upper normal in length. The pancreas again appears somewhat atrophic. Diffuse aorto iliac and other vascular calcifications are noted, with no evidence of abdominal aortic aneurysm. No biliary dilatation, obstructive uropathy, ascites, or significant para-aortic lymph node enlargement is identified. There is a negligible fat-containing umbilical hernia. No abnormal masses or fluid collections are seen in the pelvis. The prostate gland contains tiny calcifications but is not enlarged. I doubt a prostatic urethral calculus. Similar findings were seen previously. The unopacified bladder shows minimal wall thickening. The appendix is unremarkable. A few diverticula are again identified in the distal colon, with no evidence of diverticulitis, bowel obstruction, or pneumoperitoneum. Feces fills the rectum. Scattered degenerative changes are noted in the thoracolumbar spine. IMPRESSION: 1. Equivocal for minimal hiatus hernia. 2. Borderline bladder wall thickening. Clinical correlation suggested regarding possible cystitis. 3. Mild diverticulosis in the colon. 4. Other minor findings and chronic changes as described above. Electronically signed by: Kareem Perez MD 01/11/2019 4:31 PM CDT
[2019-01-11] MEDS ORDERED: MAGNESIUM SULFATE PREMIX 2GM 2 GM in PREMIX BAG 1 BAG IVPB ONE (16:39)
[2019-01-11] MEDS ORDERED: MAGNESIUM SULFATE PREMIX 2GM 50 ML IVPB ONE (16:52)
[2019-01-11] MEDS ORDERED: ONDANSETRON ODT (ER DISP) 8 MG TAB PO ONE (19:08)
[2019-01-11 19:16] VITALS: BP 125/75; TEMP 97.9; O2SAT 97
== END 2019-01-11 19:24 | disposition home or self-care (01) ==
LOC: ER 14:23
DX: R11.2 Nausea with vomiting, unspecified (principal); R07.9 Chest pain, unspecified; R10.84 Generalized abdominal pain; J45.909 Unspecified asthma, uncomplicated; I25.2 Old myocardial infarction; I10 Essential (primary) hypertension; E11.9 Type 2 diabetes mellitus without complications; Z87.891 Personal history of nicotine dependence; Z86.73 Personal history of transient ischemic attack (TIA), and cerebral infarction without residual deficits; Z95.5 Presence of coronary angioplasty implant and graft; Z95.1 Presence of aortocoronary bypass graft; Z79.4 Long term (current) use of insulin; Z79.899 Other long term (current) drug therapy; Z79.82 Long term (current) use of aspirin; Z88.1 Allergy status to other antibiotic agents
CPT/HCPCS: 36415; 36416; 71045; 74177; 80053; 81001; 82550; 82553; 82948; 83690; 83735; 84484; 85025; 85610; 85730; J2405; J3475; J7030

== ENCOUNTER → 2019-04-23 | Outpatient (CLI) | payer OTHER | LOC: GMAM 10:27 | PROVIDERS: ATTEND Family Medicine | DX: Z12.5 Encounter for screening for malignant neoplasm of prostate (principal); E11.8 Type 2 diabetes mellitus with unspecified complications ==

== ENCOUNTER 2019-07-12 04:19 | Emergency (ER) | payer OTHER ==
[2019-07-12] MEDS ORDERED: ACETAMINOPHEN 500 MG TAB PO ONE (04:54)
--- NOTE | 2019-07-12 05:00 | ED.PDOC ---
History of Present Illness - General Chief Complaint: General Stated Complaint: right lower leg pain Time Seen by Provider: 07/12/19 04:53 Source: patient - History of Present Illness Initial Comments: 74 yo male with PMH of HTN, CAD s/p CABG, DM2, peripheral neuropathy who presents with cc of acute right lower leg pain. Onset around 3 am and woke him up. Denies any acute injuries to his knowledge. Reports as a constant 5/10 severity burning pain to medial aspect of right lower leg above the ankle without radiation, not worse with walking or palpation, no meds tried for relief. He thought he might have some leg swelling as well so he came into the ED for evaluation. Denies any color change, weakness, redness, coldness, warmth, erythema, fevers, chills, chest pain, dyspnea. No hx of similar sx's. He does report chronic decreased sensation in BL LE's from diabetic peripheral neuropathy but is unchanged from usual. Allergies/Adverse Reactions: Allergies Cephalexin [From Keflex] Allergy (Verified 10/28/18 16:59) Home Medications: Ambulatory Orders Ascorbic Acid [Vitamin C] 500 mg PO DAILY 10/28/18 Aspirin [Aspirin Low Strength] 81 mg PO DAILY 10/28/18 Atorvastatin Calcium 40 mg PO BEDTIME 10/28/18 Cholecalciferol [D3 Adult Gummy] 1,000 unit PO DAILY 10/28/18 Cinnamon 1,000 mg PO DAILY 10/28/18 Clopidogrel Bisulfate 75 mg PO DAILY 10/28/18 Insulin Glargine 100U/ml [Lantus] 35 unit SUBCU DAILY 10/28/18 Multiple Vitamin [Multi Vitamin] 1 tab PO DAILY 10/28/18 Zinc 50 mg PO DAILY 10/28/18 Vancomycin Per Pharmacy 1 ea INJ ONCE each 10/31/18 Ondansetron HCl [Zofran] 4 mg PO Q6HRS PRN #10 tab 01/11/19 Ondansetron Odt (ER Disp) [Zofran ODT (ER DISP)] 4 mg PO ONCE PRN #1 tab 01/11/19 Review of Systems - Review of Systems Review of Systems: 07/12/19 04:59 as per HPI All other Systems: Reviewed and Negative Past Medical History (General) - Patient Medical History Hx Seizures: No Hx Stroke: Yes Hx Dementia: No Hx Asthma: No Hx of COPD: No Hx Cardiac Disorders: Yes - [place] x2, stents, bypass Hx Congestive Heart Failure: No Hx Pacemaker: No Hx Hypertension: Yes Hx Thyroid Disease: No Hx Diabetes: Yes Hx Gastroesophageal Reflux: No Hx Renal Disease: No Hx of HIV: No Hx MRSA: Yes MRSA Source:: Foot Surgical History: other - Vaccination History Hx Tetanus, Diphtheria Vaccination: Yes Hx Influenza Vaccination: Yes Hx Pneumococcal Vaccination: Yes Immunizations Up to Date: Yes - Social History Hx Tobacco Use: Yes Hx Chewing Tobacco Use: No Hx Alcohol Use: No - quit 40 yrs ago Hx Substance Use: No Hx Substance Use Treatment: No Hx Depression: No Feels Threatened In Home Enviroment: No Feels Threatened In a Relationship: No Hx Physical Abuse: No Hx Emotional Abuse: No Hx Suspected Abuse: No - Activities of Daily Living Hospice Agency (if applicable):: None - Female History Patient is a Female of Child Bearing Age (10 -59 yrs old): No Family Medical History - Family History Father Family History: Unknown Hx Cardiac Disease: Yes - mi-mom/dad Hx Family Diabetes: Yes - dad,brother Hx Family Cancer: Yes - mom-gastric Physical Exam - Physical Exam General Appearance: Alert, No apparent distress Eye Exam: bilateral normal Ears, Nose, Throat: normal ENT inspection, hearing decreased Neck: non-tender, full range of motion, supple, normal inspection Respiratory: lungs clear, normal breath sounds, no respiratory distress, no accessory muscle use Cardiovascular/Chest: regular rate, rhythm, no edema, no gallop, no murmur, other - faint BL DP & PT pulses on palpation but easily appreciated with doppler and appear equal BL Gastrointestinal/Abdominal: non tender, soft, no organomegaly Back Exam: normal inspection Extremity: normal range of motion, no pedal edema, no calf tenderness, normal capillary refill Neurologic: activity specialist II-XII nml as tested, no motor/sensory deficits, alert, normal mood/affect, oriented x 3 Skin Exam: normal color, warm/dry Progress - Progress Progress: 07/12/19 05:01 Acute RLE pain -suspect peripheral neuropathy most likely. Consider also DVT vs fracture vs contusion/sprain/strain vs other -will obtain XR R tib/fib, CBC, BMP, D-dimer -Tylenol 1000 mg PO for pain 07/12/19 06:19 -XR R tib/fib shows no acute processes per my read -d-dimer is <100 (negative) and CBC/BMP unremarkable -Suspect pain due to LE neuropathy. No emergent condition seems present. Pt reports pain much improved with Tylenol. Discussed findings and likely diagnosis. Advised continued OTC analgesics and close PCP f/u for further discussion and evaluation. -dc home in good condition Jorge Ro MD Billing #[id number] - Results/Orders Results/Orders: Laboratory Results - last 24 hr 07/12/19 07/12/19 07/12/19 05:18 05:18 05:18 WBC 5.9 RBC 4.34 L Hgb 12.7 L Hct 37.9 L MCV 87.4 MCH 29.4 MCHC 33.6 RDW 13.5 Plt Count 192 MPV 8.8 Absolute Neuts (auto) 2.90 Absolute Lymphs (auto) 2.10 Absolute Monos (auto) 0.70 Absolute Eos (auto) 0.20 Absolute Basos (auto) 0.10 Neutrophils % 48.6 Lymphocytes % 35.1 Monocytes % 11.0 H Eosinophils % 4.2 Basophils % 1.1 D-Dimer, Quantitative < 100.00 H* Sodium 136 Potassium 4.0 Chloride 103 Carbon Dioxide 23 Anion Gap 14.0 BUN 18 Creatinine 0.77 BUN/Creatinine Ratio 23.4 H Random Glucose 216 H Serum Osmolality 280.4 Calcium 8.8 Departure - Departure Clinical Impression: Diabetic peripheral neuropathy associated with type 2 diabetes mellitus Time of Disposition: 06:21 Disposition: Discharge to Home or Self Care Condition: Good Departure Forms: ED Discharge - Pt. Copy, Patient Portal Self Enrollment Instructions: Peripheral Neuropathy (DC) Diet: diabetic diet Activity: increase activity as tolerated Referrals: Ba Wilkinson MD [Primary Care Provider] - 1-2 Weeks Home Medications: Ambulatory Orders Ascorbic Acid [Vitamin C] 500 mg PO DAILY 10/28/18 Aspirin [Aspirin Low Strength] 81 mg PO DAILY 10/28/18 Atorvastatin Calcium 40 mg PO BEDTIME 10/28/18 Cholecalciferol [D3 Adult Gummy] 1,000 unit PO DAILY 10/28/18 Cinnamon 1,000 mg PO DAILY 10/28/18 Clopidogrel Bisulfate 75 mg PO DAILY 10/28/18 Insulin Glargine 100U/ml [Lantus] 35 unit SUBCU DAILY 10/28/18 Multiple Vitamin [Multi Vitamin] 1 tab PO DAILY 10/28/18 Zinc 50 mg PO DAILY 10/28/18 Vancomycin Per Pharmacy 1 ea INJ ONCE each 10/31/18 Ondansetron HCl [Zofran] 4 mg PO Q6HRS PRN #10 tab 01/11/19 Ondansetron Odt (ER Disp) [Zofran ODT (ER DISP)] 4 mg PO ONCE PRN #1 tab 01/11/19 Additional Instructions: Continue taking Tylenol and ibuprofen as needed for pain control. Follow up with Dr. Wilkinson in 1-2 weeks for repeat evaluation or sooner as needed. Return to the ED if your pain worsens or other concerning symptoms develop such as leg swelling, redness, or warmth or if you develop chest pain, shortness of breath, heart racing, etc...
--- NOTE | 2019-07-12 06:10 | RAD ---
Right tibia-fibula two view on 07/12/2019 CLINICAL INDICATION: Right lower leg pain COMPARISON: None FINDINGS: There is mild diffuse osteopenia. Mild changes of osteoarthritis are noted in the knee. Vascular calcifications are noted. There are no fractures. No other bony abnormality is noted. IMPRESSION: No acute abnormality. Electronically signed by: Cristopher Melgar 07/12/2019 6:05 AM [facility]
[2019-07-12 06:30] VITALS: O2SAT 97
[2019-07-12 06:31] VITALS: BP 159/90
[2019-07-12 06:34] VITALS: TEMP 98.8
== END 2019-07-12 06:34 | disposition home or self-care (01) ==
LOC: ER 04:19
DX: E11.42 Type 2 diabetes mellitus with diabetic polyneuropathy (principal); I25.2 Old myocardial infarction; I10 Essential (primary) hypertension; I25.10 Atherosclerotic heart disease of native coronary artery without angina pectoris; Z86.73 Personal history of transient ischemic attack (TIA), and cerebral infarction without residual deficits; Z95.5 Presence of coronary angioplasty implant and graft; Z79.4 Long term (current) use of insulin; Z79.899 Other long term (current) drug therapy; Z87.891 Personal history of nicotine dependence; Z79.82 Long term (current) use of aspirin; Z88.1 Allergy status to other antibiotic agents

== ENCOUNTER → 2019-07-17 | Outpatient (CLI) | payer OTHER ==
--- NOTE | 2019-07-17 16:37 | US ---
EXAM DESCRIPTION: Extremity,Lower RT Arteries: Ultrasound. CLINICAL HISTORY: PN IN RIGHT LEG COMPARISON: Duplex ultrasound evaluation of the deep venous right lower extremity. TECHNIQUE: Doppler evaluation of the bilateral lower extremity arterial flow waveforms and velocities. FINDINGS: Arterial waveforms in the right lower extremity are multiphasic spur on the right common femoral artery through the right posterior tibial artery. However, monophasic decreased velocity in the right DPA.. . Comments: Significant drop in velocity in the right DPA compared to the more proximal vessels. There may be early stenosis accounting for elevated velocity in the right SPONGE PACKER. IMPRESSION: Most likely significant atherosclerotic occlusive disease in the right JERAMIE proximally or distally. Possible early atherosclerotic lesion in the proximal right SPONGE PACKER. Electronically signed by: Jem Mcginnis MD 07/17/2019 4:35 PM TRAINING SYSTEMS OFFICER
--- NOTE | 2019-07-17 16:38 | US ---
EXAM DESCRIPTION: Venous,Lower Extremity RT: ULTRASOUND. CLINICAL HISTORY: PN IN RIGHT LEG COMPARISON: Doppler ultrasound evaluation right lower extremity arterial system. TECHNIQUE: Hernandez-scale and doppler sonographic evaluation of the deep venous system of the right lower extremity. FINDINGS: Doppler evaluation shows normal color flow and normal phasicity and augmentation of the right common femoral vein, femoral vein, popliteal vein, greater saphenous vein, junction with the CFV. Also normal color flow and normal phasicity and augmentation of the peroneal, and posterior tibial vein. The right lower extremity deep veins were completely compressible; normal occlusion with transducer pressure. Hernandez-scale survey showed no echogenic thrombus within these veins. IMPRESSION: 1. Duplex ultrasound evaluation of the right lower extremity deep venous system showing no evidence of thrombosis. Electronically signed by: Jem Mcginnis MD 07/17/2019 4:36 PM INDUSTRIAL PHARMACIST
== END ==
LOC: US 08:30
PROVIDERS: ATTEND Family Medicine
DX: M79.661 Pain in right lower leg (principal); I77.9 Disorder of arteries and arterioles, unspecified

== ENCOUNTER → 2020-01-14 | Outpatient (CLI) | payer MEDICARE | LOC: GMAM 14:12 | PROVIDERS: ATTEND Family Medicine | DX: J30.9 Allergic rhinitis, unspecified (principal) ==

== ENCOUNTER → 2020-02-23 | Outpatient (CLI) | payer MEDICARE | LOC: GMAM 16:44 | PROVIDERS: ATTEND Family Medicine | DX: M79.661 Pain in right lower leg (principal); I10 Essential (primary) hypertension ==

== ENCOUNTER → 2020-02-25 | Outpatient (CLI) | payer MEDICARE ==
--- NOTE | 2020-02-25 10:31 | US ---
EXAM DESCRIPTION: Venous,Lower Extremity RT: ULTRASOUND. CLINICAL HISTORY: PAIN IN RIGHT LOWER LEG COMPARISON: None Available. TECHNIQUE: Hernandez-scale and doppler sonographic evaluation of the deep venous system of the right lower extremity. FINDINGS: Doppler evaluation shows normal color flow and normal phasicity and augmentation of the right common femoral vein, right femoral vein, popliteal vein, right greater saphenous vein, junction with the CFV. Also normal color flow and normal phasicity and augmentation of the peroneal, and posterior tibial vein. The right lower extremity deep veins were completely compressible; normal occlusion with transducer pressure. Hernandez-scale survey showed no echogenic thrombus within these veins. IMPRESSION: 1. Duplex ultrasound evaluation of the right lower extremity deep venous system showing no evidence of thrombosis. Electronically signed by: Jem Mcginnis MD 02/25/2020 10:29 AM CDT
== END ==
LOC: US 09:56
PROVIDERS: ATTEND Family Medicine
DX: S91.301D Unspecified open wound, right foot, subsequent encounter (principal); M79.661 Pain in right lower leg

== ENCOUNTER → 2020-02-26 | Outpatient (CLI) | payer MEDICARE ==
--- NOTE | 2020-03-01 07:14 | CT ---
EXAM DESCRIPTION: Lower Extremity CLINICAL HISTORY: 74 years Male, UNSPEC OPEN WOUND RIGHT FOOT COMPARISON: MRI of the right foot December 08, 2018. CT October 28, 2018. TECHNIQUE: Noncontrast multidetector CT imaging of the right foot. This exam was performed according to our departmental dose-optimization program which includes automated exposure control, adjustment of the mA and/or kV according to patient size and/or use of iterative reconstruction technique. FINDINGS: First digit mid metatarsal amputation. The indentation site shows normal cortical thickness without periosteal reaction or erosion. There is skin ulcer and thickening overlying the amputation site. No drainable fluid collections are demonstrated. No direct bone exposure. No subcutaneous emphysema. Persistent diffuse subcutaneous fat stranding indicative of third spacing or cellulitis. There is stable advanced midfoot osteoarthritis greatest at the second metatarsophalangeal joint. No acute fractures are demonstrated. IMPRESSION: First digit mid metatarsal amputation with overlying skin ulcer. No underlying subacute or chronic osteomyelitis. Electronically signed by: Erlin Vargas MD 03/01/2020 7:12 AM CDT
== END ==
LOC: CT 10:00
PROVIDERS: ATTEND Family Medicine
DX: S91.301A Unspecified open wound, right foot, initial encounter (principal); Z89.421 Acquired absence of other right toe(s)

== ENCOUNTER 2020-04-20 15:51 | Emergency (ER) | payer MEDICARE ==
--- NOTE | 2020-04-20 16:12 | ED.PDOC ---
History of Present Illness - General Chief Complaint: Chest Pain/[place] Stated Complaint: chest pain Time Seen by Provider: 04/20/20 15:58 Source: patient, RN notes reviewed, Vital Signs reviewed Exam Limitations: no limitations - History of Present Illness Initial Comments: Patient is a 74-year-old male with past medical history of coronary artery disease who presents to ED for 2-week history of epigastric pain that feels like indigestion. States he has burning epigastric pain that gets worse after eating. Eating makes him feel nauseated and he has thrown up 3 times over the past 2 weeks. Also reports diarrhea off and on for the past 10 days. He denies fever, chills or feeling short of breath. He was concerned today that this might be something with his heart causing the pain so he came to ED for evaluation. No recent change in his symptoms. States he has been eating less for the past 10 days because of the pain associated with. Denies any previous abdominal surgeries. Allergies/Adverse Reactions: Allergies Cephalexin [From Keflex] Allergy (Verified 10/28/18 16:59) Home Medications: Ambulatory Orders Ascorbic Acid [Vitamin C] 500 mg PO DAILY 10/28/18 Aspirin [Aspirin Low Strength] 81 mg PO DAILY 10/28/18 Atorvastatin Calcium 40 mg PO BEDTIME 10/28/18 Cholecalciferol [D3 Adult Gummy] 1,000 unit PO DAILY 10/28/18 Cinnamon 1,000 mg PO DAILY 10/28/18 Clopidogrel Bisulfate 75 mg PO DAILY 10/28/18 Insulin Glargine 100U/ml [Lantus] 35 unit SUBCU DAILY 10/28/18 Multiple Vitamin [Multi Vitamin] 1 tab PO DAILY 10/28/18 Zinc 50 mg PO DAILY 10/28/18 Vancomycin Per Pharmacy 1 ea INJ ONCE each 10/31/18 Ondansetron HCl [Zofran] 4 mg PO Q6HRS PRN #10 tab 01/11/19 Ondansetron Odt (ER Disp) [Zofran ODT (ER DISP)] 4 mg PO ONCE PRN #1 tab 01/11/19 Ciprofloxacin HCl [Cipro] 500 mg PO BID #28 tab 04/20/20 Ondansetron HCl [Zofran] 4 mg PO Q6HR PRN #15 tab 04/20/20 metroNIDAZOLE [Flagyl] 500 mg PO Q8H #42 tab 04/20/20 traMADol 37.5MG/APAP 325MG [Ultracet] 1 ea PO .Q4H PRN #20 tab 04/20/20 Review of Systems - Review of Systems Constitutional: Denies: chills, fever EENTM: Denies: throat pain, throat swelling Respiratory: Denies: cough, short of breath Cardiology: Denies: edema, palpitations, syncope Gastrointestinal/Abdominal: States: abdominal pain, diarrhea, nausea, vomiting Genitourinary: Denies: dysuria, frequency Musculoskeletal: Denies: back pain, neck pain Neurological: Denies: headache, paresthesia Hematologic/Lymphatic: States: no symptoms reported All other Systems: Reviewed and Negative Past Medical History (General) - Patient Medical History Hx Seizures: No Hx Stroke: Yes Hx Dementia: No Hx Asthma: No Hx of COPD: No Hx Cardiac Disorders: Yes - [place] x2, stents, bypass Hx Congestive Heart Failure: No Hx Pacemaker: No Hx Hypertension: Yes Hx Thyroid Disease: No Hx Diabetes: Yes Hx Gastroesophageal Reflux: No Hx Renal Disease: No Hx of HIV: No Hx MRSA: Yes MRSA Source:: Foot - Vaccination History Hx Tetanus, Diphtheria Vaccination: Yes Hx Influenza Vaccination: Yes Hx Pneumococcal Vaccination: Yes - Social History Hx Tobacco Use: Yes Hx Chewing Tobacco Use: No Hx Alcohol Use: No - quit 40 yrs ago Hx Substance Use: No Hx Substance Use Treatment: No Hx Depression: No Hx Physical Abuse: No Hx Emotional Abuse: No Hx Suspected Abuse: No Family Medical History - Family History Father Family History: Unknown Hx Cardiac Disease: Yes - mi-mom/dad Hx Family Diabetes: Yes - dad,brother Hx Family Cancer: Yes - mom-gastric Physical Exam - Physical Exam General Appearance: Alert, Comfortable, No apparent distress Neck: non-tender, full range of motion, supple Respiratory: chest non-tender, lungs clear, normal breath sounds, no respiratory distress, no accessory muscle use Cardiovascular/Chest: normal peripheral pulses, regular rate, rhythm, no murmur Gastrointestinal/Abdominal: other - soft, mild TTP in epigastric area. No guarding or rigidity Back Exam: no CVA tenderness, no vertebral tenderness Extremity: normal range of motion, non-tender, no calf tenderness Neurologic: no motor/sensory deficits, alert, normal mood/affect Skin Exam: normal color, warm/dry Progress - Progress Progress: 04/20/20 17:28 Pt presents to ED with 2 week h/o upper abd pain that feels like indigestion and seems worse after eating. EKG and troponin are negative, i doubt ACS at this time. CT shows signs of colitis. VS have been stable and pt tolerating po fluids well. will treat with abx and I have asked him to f/u with his PCP in 1- 2 days for recheck. SRP given. - Results/Orders Results/Orders: EKG- NSR, rate 94, nml intervals, no ST abnormality CHEST XRAY EXAM DESCRIPTION: Chest,1 View CLINICAL HISTORY: 74 years Male, abdominal pain COMPARISON: Previous chest x-ray January 11, 2019 TECHNIQUE: AP portable chest. FINDINGS: Heart size is prominent with normal pulmonary vascularity. Sternotomy wires are present. No consolidating infiltrate. No pulmonary mass or worrisome nodule. No pneumothorax or pleural effusion. Bones are unremarkable. IMPRESSION: No acute process is identified in the chest. CT ABD/PELVIS FINDINGS: Small hiatal hernia The liver appears unremarkable. The spleen and pancreas appear unremarkable. No adrenal masses. The kidneys appear unremarkable. No hydronephrosis. The gallbladder is visualized. No aneurysmal dilatation of the aorta. No bowel obstruction. The appendix is unremarkable. No significant free fluid noted. There is mild wall thickening in segments of the colon suggesting early colitis. This is most notable in the descending and the sigmoid colon. Diverticulosis without evidence of diverticulitis. Prominent prostate. IMPRESSION: Subtle wall thickening in the descending and the sigmoid colon suggesting mild colitis 04/20/20 16:05 IV:Start .ONCE 04/20/20 16:06 Hold Metformin x 48Hrs [id number] URINALYSIS Stat 04/20/20 16:15 EKG .ONCE Laboratory Results - last 24 hr 04/20/20 04/20/20 04/20/20 16:10 16:10 16:10 WBC 10.7 RBC 4.53 L Hgb 13.5 L Hct 38.5 L MCV 85.1 MCH 29.7 MCHC 34.9 RDW 14.6 H Plt Count 227 MPV 8.5 Absolute Neuts (auto) 7.30 H Absolute Lymphs (auto) 2.00 Absolute Monos (auto) 1.20 H Absolute Eos (auto) 0.10 Absolute Basos (auto) 0.10 Neutrophils % 68.5 Lymphocytes % 18.3 L Monocytes % 11.1 H Eosinophils % 1.2 Basophils % 0.9 Sodium 134 L Potassium 4.6 Chloride 99 L Carbon Dioxide 25 Anion Gap 14.6 BUN 24 H Creatinine 1.08 BUN/Creatinine Ratio 22.2 H Random Glucose 143 H Serum Osmolality 274.8 L Calcium 9.1 Total Bilirubin 1.1 H AST 16 ALT 16 Alkaline Phosphatase 92 Troponin I < 0.02 Serum Total Protein 7.7 Albumin 4.0 Globulin 3.7 H Albumin/Globulin Ratio 1.1 Lipase 23 Departure - Departure Clinical Impression: Upper abdominal pain, Atypical chest pain, Colitis Time of Disposition: 17:30 Disposition: Discharge to Home or Self Care Condition: Good Departure Forms: ED Discharge - Pt. Copy, Patient Portal Self Enrollment Instructions: DI for Chest Pain, Acute Abdomen (Belly Pain), Adult (DC) Diet: bland diet Activity: increase activity as tolerated Referrals: Ba Wilkinson MD [Primary Care Provider] - 1-2 Days Prescriptions: Ondansetron HCl [Zofran] 4 mg PO Q6HR PRN #15 tab PRN Reason: Nausea Ciprofloxacin HCl [Cipro] 500 mg PO BID #28 tab metroNIDAZOLE [Flagyl] 500 mg PO Q8H #42 tab traMADol 37.5MG/APAP 325MG [Ultracet] 1 ea PO .Q4H PRN #20 tab PRN Reason: Pain Home Medications: Ambulatory Orders Ascorbic Acid [Vitamin C] 500 mg PO DAILY 10/28/18 Aspirin [Aspirin Low Strength] 81 mg PO DAILY 10/28/18 Atorvastatin Calcium 40 mg PO BEDTIME 10/28/18 Cholecalciferol [D3 Adult Gummy] 1,000 unit PO DAILY 10/28/18 Cinnamon 1,000 mg PO DAILY 10/28/18 Clopidogrel Bisulfate 75 mg PO DAILY 10/28/18 Insulin Glargine 100U/ml [Lantus] 35 unit SUBCU DAILY 10/28/18 Multiple Vitamin [Multi Vitamin] 1 tab PO DAILY 10/28/18 Zinc 50 mg PO DAILY 10/28/18 Vancomycin Per Pharmacy 1 ea INJ ONCE each 10/31/18 Ondansetron HCl [Zofran] 4 mg PO Q6HRS PRN #10 tab 01/11/19 Ondansetron Odt (ER Disp) [Zofran ODT (ER DISP)] 4 mg PO ONCE PRN #1 tab 01/11/19 Ciprofloxacin HCl [Cipro] 500 mg PO BID #28 tab 04/20/20 Ondansetron HCl [Zofran] 4 mg PO Q6HR PRN #15 tab 04/20/20 metroNIDAZOLE [Flagyl] 500 mg PO Q8H #42 tab 04/20/20 traMADol 37.5MG/APAP 325MG [Ultracet] 1 ea PO .Q4H PRN #20 tab 04/20/20
[2020-04-20 16:15] VITALS: TEMP 97.8
--- NOTE | 2020-04-20 16:37 | RAD ---
EXAM DESCRIPTION: Chest,1 View CLINICAL HISTORY: 74 years Male, abdominal pain COMPARISON: Previous chest x-ray January 11, 2019 TECHNIQUE: AP portable chest. FINDINGS: Heart size is prominent with normal pulmonary vascularity. Sternotomy wires are present. No consolidating infiltrate. No pulmonary mass or worrisome nodule. No pneumothorax or pleural effusion. Bones are unremarkable. IMPRESSION: No acute process is identified in the chest. Electronically signed by: Marcial Sierra MD 04/20/2020 4:35 PM CDT
--- NOTE | 2020-04-20 17:21 | CT ---
EXAM DESCRIPTION: Abdomen/Pelvis w/Contrast CLINICAL HISTORY: 74 years Male upper abd pain, vomiting, diarrhea COMPARISON: 01/11/2019. TECHNIQUE: Contiguous axial images obtained through the abdomen and pelvis following IV contrast. Reformatted images obtained. This exam was performed according to our department optimization program which includes automated exposure control, adjustment of the mA and/or kv according to patient size and/or use of iterative reconstruction technique. FINDINGS: Small hiatal hernia The liver appears unremarkable. The spleen and pancreas appear unremarkable. No adrenal masses. The kidneys appear unremarkable. No hydronephrosis. The gallbladder is visualized. No aneurysmal dilatation of the aorta. No bowel obstruction. The appendix is unremarkable. No significant free fluid noted. There is mild wall thickening in segments of the colon suggesting early colitis. This is most notable in the descending and the sigmoid colon. Diverticulosis without evidence of diverticulitis. Prominent prostate. IMPRESSION: Subtle wall thickening in the descending and the sigmoid colon suggesting mild colitis Electronically signed by: Caity Sanchez MD 04/20/2020 5:20 PM CDT
[2020-04-20] MEDS ORDERED: CIPROFLOXACIN 500 MG TAB PO ONE (18:42)
[2020-04-20] MEDS ORDERED: metroNIDAZOLE 500 MG TAB PO ONE (18:42)
[2020-04-20 19:54] VITALS: BP 141/79; O2SAT 94
== END 2020-04-20 19:12 | disposition home or self-care (01) ==
LOC: ER 15:51
DX: R07.89 Other chest pain (principal); K52.9 Noninfective gastroenteritis and colitis, unspecified; R10.13 Epigastric pain; E11.9 Type 2 diabetes mellitus without complications; I25.10 Atherosclerotic heart disease of native coronary artery without angina pectoris; I10 Essential (primary) hypertension; I25.2 Old myocardial infarction; Z95.5 Presence of coronary angioplasty implant and graft; Z86.73 Personal history of transient ischemic attack (TIA), and cerebral infarction without residual deficits; Z79.899 Other long term (current) drug therapy; Z79.82 Long term (current) use of aspirin; Z79.4 Long term (current) use of insulin; Z88.1 Allergy status to other antibiotic agents

== ENCOUNTER 2020-04-22 00:57 | Emergency (ER) | payer MEDICARE ==
--- NOTE | 2020-04-22 01:31 | RAD ---
EXAM DESCRIPTION: Chest,1 View CLINICAL HISTORY: 74 years Male, fall COMPARISON: 04/20/20 TECHNIQUE: Single AP chest radiograph. FINDINGS: Clear lungs. No pneumothorax or pleural effusion. Normal cardiomediastinal contour. Sternotomy wires. Normal osseous structures. IMPRESSION: 1. No acute cardiopulmonary process. No interval changes. Electronically signed by: Hussein Cook MD 04/22/2020 1:30 AM CDT
--- NOTE | 2020-04-22 01:32 | ED.PDOC ---
History of Present Illness - General Chief Complaint: Trauma Time Seen by Provider: 04/22/20 01:20 Source: patient, RN notes reviewed, Vital Signs reviewed, old records - History of Present Illness Initial Comments: Pleasant 74 yo male was hx of CAD going to use the restroom when he tripped at fell forward hitting his head and rib on a night stand. Denies LOC. Complains of head and rib pain. no shortness of breath. no n/v/d. Was seen yesterday and diagnosed with colitis which he was put on cipro and fagyl for. Occurred: this evening Injuries/Pain Location: head Reason for Fall: lost balance, tripped Loss of Consciousness: no loss of consciousness Allergies/Adverse Reactions: Allergies Cephalexin [From Keflex] Allergy (Verified 10/28/18 16:59) Home Medications: Ambulatory Orders Ascorbic Acid [Vitamin C] 500 mg PO DAILY 10/28/18 Aspirin [Aspirin Low Strength] 81 mg PO DAILY 10/28/18 Atorvastatin Calcium 40 mg PO BEDTIME 10/28/18 Cholecalciferol [D3 Adult Gummy] 1,000 unit PO DAILY 10/28/18 Cinnamon 1,000 mg PO DAILY 10/28/18 Clopidogrel Bisulfate 75 mg PO DAILY 10/28/18 Insulin Glargine 100U/ml [Lantus] 35 unit SUBCU DAILY 10/28/18 Multiple Vitamin [Multi Vitamin] 1 tab PO DAILY 10/28/18 Zinc 50 mg PO DAILY 10/28/18 Vancomycin Per Pharmacy 1 ea INJ ONCE each 10/31/18 Ondansetron HCl [Zofran] 4 mg PO Q6HRS PRN #10 tab 01/11/19 Ondansetron Odt (ER Disp) [Zofran ODT (ER DISP)] 4 mg PO ONCE PRN #1 tab 01/11/19 Ciprofloxacin HCl [Cipro] 500 mg PO BID #28 tab 04/20/20 Ondansetron HCl [Zofran] 4 mg PO Q6HR PRN #15 tab 04/20/20 metroNIDAZOLE [Flagyl] 500 mg PO Q8H #42 tab 04/20/20 traMADol 37.5MG/APAP 325MG [Ultracet] 1 ea PO .Q4H PRN #20 tab 04/20/20 Review of Systems - Review of Systems Constitutional: Denies: chills, fever EENTM: Denies: blurred vision, throat swelling, mouth pain Respiratory: Denies: cough, short of breath Cardiology: Denies: chest pain, palpitations Gastrointestinal/Abdominal: Denies: abdominal pain, diarrhea, nausea, vomiting Genitourinary: Denies: discharge, frequency, hematuria Musculoskeletal: Denies: back pain, joint pain, muscle pain, neck pain Skin: States: rash - abrasian to forehead. Neurological: Denies: headache, numbness, paresthesia, pre-existing deficit, tingling, tremors, weakness Endocrine: Denies: unexplained weight gain, unexplained weight loss Past Medical History (General) - Patient Medical History Hx Seizures: No Hx Stroke: Yes Hx Dementia: No Hx Asthma: No Hx of COPD: No Hx Cardiac Disorders: Yes - [place] x2, stents, bypass Hx Congestive Heart Failure: No Hx Pacemaker: No Hx Hypertension: Yes Hx Thyroid Disease: No Hx Diabetes: Yes Hx Gastroesophageal Reflux: No Hx Renal Disease: No Hx of HIV: No Hx MRSA: Yes MRSA Source:: Foot - Vaccination History Hx Tetanus, Diphtheria Vaccination: No - unknown Hx Influenza Vaccination: No - unknown Hx Pneumococcal Vaccination: No - unknown Immunizations Up to Date: - unknown - Social History Hx Tobacco Use: Yes Hx Chewing Tobacco Use: No Hx Alcohol Use: No - quit 40 yrs ago Hx Substance Use: No Hx Substance Use Treatment: No Hx Depression: No Hx Physical Abuse: No Hx Emotional Abuse: No Hx Suspected Abuse: No Physical Exam - Physical Exam General Appearance: Alert, Comfortable, No apparent distress, Well Developed, Well Groomed, Well Hydrated, Well Nourished Head Injury: no evidence of injury, other - no crabtree sign or raccoon eyes Eye Exam: bilateral normal ENT Exam: hearing grossly normal, no evidence of ENT injury, no dental injury Peripheral Pulses: radial,right: 2+, radial,left: 2+ Cardiovascular/Respiratory: regular rate, rhythm, no M/R/G, normal peripheral pulses, no JVD, normal breath sounds, no respiratory distress Gastrointestinal/Abdominal: normal bowel sounds, non tender, soft, no organomegaly, no pulsatile mass Back Exam: normal inspection, no CVA tenderness, no vertebral tenderness Extremity Exam: no evidence of injury, normal range of motion, non-tender, other - prior right toe amputation. 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 left forearm skin tear. - [place] Coma Score Best Eye Response (Sam): (4) open spontaneously Best Verbal Response (Sam): (5) oriented Best Motor Response (Sam): (6) obeys commands Sam Total: 15 Progress - Progress Progress: 04/22/20 01:56 Tdap up dated. 04/22/20 02:07 The data reviewed when caring for this patient included: nurse notes, prior records, etc. The history and assessments from nurses notes were reviewed and considered, and the patient's home medication list was also reviewed and considered. My assessment and the results of testing completed here in the ED were discussed with the patient/family. All questions were answered, and they express understanding of my assessment and the plan. They have been instructed to return if their symptoms worsen, and have been asked to follow up with their primary care physician to recheck today's presenting complaint. Strict return precautions given. Patient has tramadol from yesterday visit, recommend he takes this and Tylenol for pain. VSS, HR 90, BP 104/87. Patient discharged home in stable condition. Alona Nuñez DO #[id number] 04/22/20 02:08 - EKG/XRAY/CT EKG: Sinus, Tachy Comments: motion artificat, no significant change from 04/20/20. XRAY: chest - no acute cardoiopulmonary pathology. no rib fractures noted. CT: head without: no ICH Departure - Departure Clinical Impression: Abrasion Fall Qualifiers: Encounter type: initial encounter Qualified Code(s): W19.XXXA - Unspecified fall, initial encounter Concussion Qualifiers: Encounter type: initial encounter Loss of consciousness presence/duration: without LOC Qualified Code(s): S06.0X0A - Concussion without loss of consciousness, initial encounter Time of Disposition: 01:57 Disposition: Discharge to Home or Self Care Departure Forms: ED Discharge - Pt. Copy, Patient Portal Self Enrollment Instructions: DI for Trauma, Preventing Falls in the Older Adult, Concussion, Adult (DC), Wound Care (DC) Referrals: Ba Wilkinson MD [Primary Care Provider] - 1-2 Days Home Medications: Ambulatory Orders Ascorbic Acid [Vitamin C] 500 mg PO DAILY 10/28/18 Aspirin [Aspirin Low Strength] 81 mg PO DAILY 10/28/18 Atorvastatin Calcium 40 mg PO BEDTIME 10/28/18 Cholecalciferol [D3 Adult Gummy] 1,000 unit PO DAILY 10/28/18 Cinnamon 1,000 mg PO DAILY 10/28/18 Clopidogrel Bisulfate 75 mg PO DAILY 10/28/18 Insulin Glargine 100U/ml [Lantus] 35 unit SUBCU DAILY 10/28/18 Multiple Vitamin [Multi Vitamin] 1 tab PO DAILY 10/28/18 Zinc 50 mg PO DAILY 10/28/18 Vancomycin Per Pharmacy 1 ea INJ ONCE each 10/31/18 Ondansetron HCl [Zofran] 4 mg PO Q6HRS PRN #10 tab 01/11/19 Ondansetron Odt (ER Disp) [Zofran ODT (ER DISP)] 4 mg PO ONCE PRN #1 tab 01/11/19 Ciprofloxacin HCl [Cipro] 500 mg PO BID #28 tab 04/20/20 Ondansetron HCl [Zofran] 4 mg PO Q6HR PRN #15 tab 04/20/20 metroNIDAZOLE [Flagyl] 500 mg PO Q8H #42 tab 04/20/20 traMADol 37.5MG/APAP 325MG [Ultracet] 1 ea PO .Q4H PRN #20 tab 04/20/20
[2020-04-22] MEDS ORDERED: TETANUS,DIPHTHERIA,PERTUSSIS 1 EA SYG IM ONE (01:33)
--- NOTE | 2020-04-22 01:59 | CT ---
EXAM: Head HISTORY: 74 years Male fall COMPARISON: None TECHNIQUE: Contiguous axial images of the head were obtained from the skull base through the vertex without IV contrast followed by multiplanar reformats. This exam was performed according to our departmental dose-optimization program, which includes automated exposure control, adjustment of the mA and/or kV according to patient size and/or use of iterative reconstruction technique. FINDINGS: Generalized parenchymal volume loss. No hydrocephalus. No midline shift, mass effect or abnormal extraaxial collection. No acute intracranial hemorrhage or infarct. Chronic microangiopathic ischemic white matter changes. Orbital contents are unremarkable. The paranasal sinuses and mastoid air cells are well pneumatized. No acute calvarial abnormality. IMPRESSION: 1. No acute intracranial pathology. Electronically signed by: Hussein Cook MD 04/22/2020 1:57 AM CDT
[2020-04-22] MEDS ORDERED: NEOMYCIN-BACITRACIN-POLYMYXIN 0.9 GM UD TOP ONE (02:06)
[2020-04-22 02:11] VITALS: BP 144/83; TEMP 96; O2SAT 97
== END 2020-04-22 02:09 | disposition home or self-care (01) ==
LOC: ER 00:57
DX: S06.0X0A Concussion without loss of consciousness, initial encounter (principal); S00.81XA Abrasion of other part of head, initial encounter; I10 Essential (primary) hypertension; E11.9 Type 2 diabetes mellitus without complications; I25.2 Old myocardial infarction; I25.10 Atherosclerotic heart disease of native coronary artery without angina pectoris; Z87.891 Personal history of nicotine dependence; Z95.5 Presence of coronary angioplasty implant and graft; Z86.73 Personal history of transient ischemic attack (TIA), and cerebral infarction without residual deficits; Z79.4 Long term (current) use of insulin; Z79.82 Long term (current) use of aspirin; Z79.899 Other long term (current) drug therapy; Z88.1 Allergy status to other antibiotic agents; W01.190A Fall on same level from slipping, tripping and stumbling with subsequent striking against furniture, initial encounter; Y92.9 Unspecified place or not applicable

== ENCOUNTER → 2020-05-07 | Outpatient (CLI) | payer MEDICARE | LOC: BFHH 11:20 | PROVIDERS: ATTEND Family Medicine | DX: E11.621 Type 2 diabetes mellitus with foot ulcer (principal); L97.512 Non-pressure chronic ulcer of other part of right foot with fat layer exposed; L03.115 Cellulitis of right lower limb ==

== ENCOUNTER 2020-05-16 05:49 | Emergency (ER) | payer MEDICARE ==
--- NOTE | 2020-05-16 06:41 | ED.PDOC ---
History of Present Illness - History of Present Illness Initial Comments: PATIENT REPORTS HE FELL GETTING OFF THE COMMODE SATURDAY EVENING AND WAS UNABLE TO GET UP FOR 36 HOURS, EVENTUALLY WAS ABLE TO CRAWL TO WHERE HIS TELEPHONE WAS AND CALLED THIS MORNING. DENIES ANY INJURIES. STATES DID HAVE A LITTLE BIT OF WATER THIS MORNING BUT NOTHING ELSE TO EAT OR DRINK SINCE THEN. DENIES ANY PAIN ANYWHERE. HE HAS A DIABETIC FOOT ULCER ON HIS RIGHT FOOT THAT HE SEES WOUND C[facility] IN [facility]. PMHX DM, HNT, ASCAN. <Flavio Ryder - Last Filed: 05/16/20 06:52> <Anthony Chawla - Last Filed: 05/16/20 11:30> - General Chief Complaint: Trauma Stated Complaint: fell, since saturday evening Time Seen by Provider: 05/16/20 06:38 - History of Present Illness Allergies/Adverse Reactions: Allergies Cephalexin [From Keflex] Allergy (Verified 10/28/18 16:59) Home Medications: Ambulatory Orders Ascorbic Acid [Vitamin C] 500 mg PO DAILY 10/28/18 Aspirin [Aspirin Low Strength] 81 mg PO DAILY 10/28/18 Atorvastatin Calcium 40 mg PO BEDTIME 10/28/18 Cholecalciferol [D3 Adult Gummy] 1,000 unit PO DAILY 10/28/18 Cinnamon 1,000 mg PO DAILY 10/28/18 Clopidogrel Bisulfate 75 mg PO DAILY 10/28/18 Insulin Glargine 100U/ml [Lantus] 35 unit SUBCU DAILY 10/28/18 Multiple Vitamin [Multi Vitamin] 1 tab PO DAILY 10/28/18 Zinc 50 mg PO DAILY 10/28/18 Vancomycin Per Pharmacy 1 ea INJ ONCE each 10/31/18 Ondansetron HCl [Zofran] 4 mg PO Q6HRS PRN #10 tab 01/11/19 Ondansetron Odt (ER Disp) [Zofran ODT (ER DISP)] 4 mg PO ONCE PRN #1 tab 01/11/19 Ciprofloxacin HCl [Cipro] 500 mg PO BID #28 tab 04/20/20 Ondansetron HCl [Zofran] 4 mg PO Q6HR PRN #15 tab 04/20/20 metroNIDAZOLE [Flagyl] 500 mg PO Q8H #42 tab 04/20/20 traMADol 37.5MG/APAP 325MG [Ultracet] 1 ea PO .Q4H PRN #20 tab 04/20/20 Review of Systems - Review of Systems Constitutional: States: no symptoms reported EENTM: States: no symptoms reported Respiratory: States: no symptoms reported Cardiology: States: no symptoms reported Gastrointestinal/Abdominal: States: no symptoms reported Genitourinary: States: no symptoms reported Musculoskeletal: States: no symptoms reported Skin: States: no symptoms reported Neurological: States: no symptoms reported <Flavio Ryder - Trevon Filed: 05/16/20 06:52> Past Medical History (General) - Patient Medical History Hx Seizures: No Hx Stroke: Yes Hx Dementia: No Hx Asthma: No Hx of COPD: No Hx Cardiac Disorders: Yes - [place] x2, stents, bypass Hx Congestive Heart Failure: No Hx Pacemaker: No Hx Hypertension: Yes Hx Thyroid Disease: No Hx Diabetes: Yes Hx Gastroesophageal Reflux: No Hx Renal Disease: No Hx of HIV: No Hx MRSA: Yes MRSA Source:: Foot - Vaccination History Hx Tetanus, Diphtheria Vaccination: No - unknown Hx Influenza Vaccination: No - unknown Hx Pneumococcal Vaccination: No - unknown - Social History Hx Tobacco Use: Yes Hx Chewing Tobacco Use: No Hx Alcohol Use: No - quit 40 yrs ago Hx Substance Use: No Hx Substance Use Treatment: No Hx Depression: No Hx Physical Abuse: No Hx Emotional Abuse: No Hx Suspected Abuse: No <Flavio Ryder - Trevon Filed: 05/16/20 06:52> Family Medical History - Family History Father Family History: Unknown Hx Cardiac Disease: Yes - mi-mom/dad Hx Family Diabetes: Yes - dad,brother Hx Family Cancer: Yes - mom-gastric <Flavio Ryder - Last Filed: 05/16/20 06:52> Physical Exam - Physical Exam General Appearance: Alert, Comfortable, Frail, No apparent distress ENT Exam: hearing grossly normal, no evidence of ENT injury Neck Exam: non-tender, full range of motion, normal alignment, normal inspection Cardiovascular/Respiratory: regular rate, rhythm, normal peripheral pulses, no JVD, normal breath sounds Gastrointestinal/Abdominal: normal bowel sounds, non tender, soft, no organomegaly Genitalia: normal genital exam, normal rectal exam Back Exam: normal inspection, no CVA tenderness, no vertebral tenderness Extremity Exam: other - 2 X 2 ULCER BALL OF FOOT OVER 2ND METATARSAL HEAD, S/P GREAT TOE AMPUTATION 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 Surprisingly, based on laboratory work the patient does not have much in the way of rhabdomyolysis. The patient does have chronic difficulty with getting around however the weakness is much more pronounced than normal. I believe he is becoming septic from the osteomyelitis of his right foot. He is receiving a second liter of IV fluids currently. Wound and blood cultures have been performed. He has been started on vancomycin and Zosyn for now. He is likely going to need some significant rehabilitation before he is able to be functional back at home again. The patient is mentating slowly. I am uncertain what his baseline mental status is. Head CT was within normal limits and he is not obviously showing new complete deficits of any form. He does seem a little delirious. He will need to be followed. It is uncertain as he was on the floor for a couple of days if he had episodes of hypoglycemia. None here so far. Admit for continued care. anthony chawla [phone] - Results/Orders Results/Orders: CT scan of the head shows no acute changes. See report for details. Chest x-ray shows no acute pathology. See report for details. CT scan of the right lower extremity shows osteomyelitis of the second metatarsal phalangeal joint. See report for details. There are also chronic dislocations present. EKG shows sinus tachycardia 126 bpm with frequent P ACEs. Early right bundle branch block. Borderline R wave progression. Normal QT interval. No definitive ST segment or T wave changes indicative of acute ischemia. Laboratory Tests 05/16/20 05/16/20 05/16/20 06:25 06:25 06:25 WBC 11.2 H RBC 4.43 L Hgb 12.9 L Hct 37.5 L MCV 84.7 MCH 29.2 MCHC 34.4 RDW 15.2 H Plt Count 343 MPV 8.0 Absolute Neuts (auto) 8.90 H Absolute Lymphs (auto) 1.20 Absolute Monos (auto) 1.00 H Absolute Eos (auto) 0.10 Absolute Basos (auto) 0.10 Neutrophils % 79.5 H Lymphocytes % 10.6 L Monocytes % 9.1 H Eosinophils % 0.4 L Basophils % 0.4 Sodium 132 L Potassium 4.4 Chloride 96 L Carbon Dioxide 18 L Anion Gap 22.4 H BUN 44 H Creatinine 1.31 H BUN/Creatinine Ratio 33.6 H Random Glucose 298 H Serum Osmolality 286.8 Lactic Acid Calcium 8.6 Total Bilirubin 1.4 H AST 20 ALT 22 Alkaline Phosphatase 111 Creatine Kinase 196 H Troponin I 0.02 B-Natriuretic Peptide Serum Total Protein 7.7 Albumin 3.2 Globulin 4.5 H Albumin/Globulin Ratio 0.7 L Urine Color Urine Appearance Urine pH Ur Specific [place] Urine Protein Urine Glucose (UA) Urine Ketones Urine Blood Urine Nitrite Urine Bilirubin Urine Urobilinogen Ur Leukocyte Esterase Urine RBC Urine WBC Ur Epithelial Cells Urine Bacteria 05/16/20 05/16/20 05/16/20 06:25 07:52 09:25 WBC RBC Hgb Hct MCV MCH MCHC RDW Plt Count MPV Absolute Neuts (auto) Absolute Lymphs (auto) Absolute Monos (auto) Absolute Eos (auto) Absolute Basos (auto) Neutrophils % Lymphocytes % Monocytes % Eosinophils % Basophils % Sodium Potassium Chloride Carbon Dioxide Anion Gap BUN Creatinine BUN/Creatinine Ratio Random Glucose Serum Osmolality Lactic Acid 1.5 Calcium Total Bilirubin AST ALT Alkaline Phosphatase Creatine Kinase Troponin I B-Natriuretic Peptide 100.0 Serum Total Protein Albumin Globulin Albumin/Globulin Ratio Urine Color Yellow Urine Appearance Clear Urine pH 5.0 Ur Specific [place] 1.020 Urine Protein Negative Urine Glucose (UA) 500 H Urine Ketones >=160 Urine Blood Trace-lysed H Urine Nitrite Negative Urine Bilirubin Small H Urine Urobilinogen 0.2 Ur Leukocyte Esterase Negative Urine RBC 0-1 Urine WBC 0-1 Ur Epithelial Cells 1-3 Urine Bacteria 0 <Anthony Chawla - Last Filed: 05/16/20 11:30> Departure <Flavio Ryder - Last Filed: 05/16/20 06:52> <Anthony Chawla - Last Filed: 05/16/20 11:30> - Departure Clinical Impression: Dehydration, Delirium, Inability to perform activities of daily living Sepsis Qualifiers: Sepsis type: sepsis due to unspecified organism Sepsis acute organ dysfunction status: unspecified Qualified Code(s): A41.9 - Sepsis, unspecified organism Osteomyelitis Qualifiers: Osteomyelitis type: subacute Osteomyelitis location: foot Laterality: right Qualified Code(s): M86.271 - Subacute osteomyelitis, right ankle and foot Disposition: Admit Patient Condition: Poor Departure Forms: ED Discharge - Pt. Copy, Patient Portal Self Enrollment Instructions: DI for Trauma Referrals: Ba Chawla MD [Primary Care Provider] - 1-2 Weeks Home Medications: Ambulatory Orders Ascorbic Acid [Vitamin C] 500 mg PO DAILY 10/28/18 Aspirin [Aspirin Low Strength] 81 mg PO DAILY 10/28/18 Atorvastatin Calcium 40 mg PO BEDTIME 10/28/18 Cholecalciferol [D3 Adult Gummy] 1,000 unit PO DAILY 10/28/18 Cinnamon 1,000 mg PO DAILY 10/28/18 Clopidogrel Bisulfate 75 mg PO DAILY 10/28/18 Insulin Glargine 100U/ml [Lantus] 35 unit SUBCU DAILY 10/28/18 Multiple Vitamin [Multi Vitamin] 1 tab PO DAILY 10/28/18 Zinc 50 mg PO DAILY 10/28/18 Vancomycin Per Pharmacy 1 ea INJ ONCE each 10/31/18 Ondansetron HCl [Zofran] 4 mg PO Q6HRS PRN #10 tab 01/11/19 Ondansetron Odt (ER Disp) [Zofran ODT (ER DISP)] 4 mg PO ONCE PRN #1 tab 01/11/19 Ciprofloxacin HCl [Cipro] 500 mg PO BID #28 tab 04/20/20 Ondansetron HCl [Zofran] 4 mg PO Q6HR PRN #15 tab 04/20/20 metroNIDAZOLE [Flagyl] 500 mg PO Q8H #42 tab 04/20/20 traMADol 37.5MG/APAP 325MG [Ultracet] 1 ea PO .Q4H PRN #20 tab 04/20/20 Decision To Admit - Decistion To Admit Decision to Admit Reason: Medical Nature Decision to Admit Date: 05/16/20 Decision to Admit Time: 11:30 <Anthony Chawla - Last Filed: 05/16/20 11:30>
[2020-05-16] MEDS ORDERED: SODIUM CHLORIDE 0.9% 1000ML 1,000 ML IVS ONE ×2 (06:44→11:25)
--- NOTE | 2020-05-16 07:31 | CT ---
EXAM: CT Head Without Intravenous Contrast CLINICAL HISTORY: The patient is 74 years old and is Male; WEAKNESS TECHNIQUE: Axial computed tomography images of the head/brain without intravenous contrast. Sagittal and coronal reformatted images were created and reviewed. This CT exam was performed using one or more of the following dose reduction techniques: automated exposure control, adjustment of the mA and/or kV according to patient size, and/or use of iterative reconstruction technique. COMPARISON: CT abdomen head April 22, 2020. FINDINGS: Brain: Unremarkable. No hemorrhage. No significant white matter disease. No edema. Ventricles: Unremarkable. No ventriculomegaly. Bones/joints: Unremarkable. No acute skull fracture. Soft tissues: Unremarkable. Sinuses: Unremarkable as visualized. No acute sinusitis. Mastoid air cells: Right mastoid fluid. Trace right middle ear fluid. IMPRESSION: 1. No acute intracranial findings. No hemorrhage. 2. Right mastoid fluid. Trace right middle ear fluid. Electronically signed by: Aracelis Moran MD 05/16/2020 7:30 AM [employer]
--- NOTE | 2020-05-16 10:06 | RAD ---
EXAM DESCRIPTION: Chest,1 View CLINICAL HISTORY: 74 years Male, ams, weakness COMPARISON: Previous chest x-ray April 22, 2020 TECHNIQUE: AP portable chest. FINDINGS: Heart size is normal with normal pulmonary vascularity. Sternotomy wires are present. No consolidating infiltrate. No pulmonary mass or worrisome nodule. No pneumothorax or pleural effusion. Bones are unremarkable. IMPRESSION: No acute process is identified in the chest. Electronically signed by: Marcial Sierra MD 05/16/2020 10:05 AM [facility]
--- NOTE | 2020-05-16 10:43 | CT ---
Study: CT of the Right Foot. Indication: rt foot ulcer, cellulitis?osteo? Technique: Axial CT images were acquired through the right foot without intravenous contrast. Coronal and sagittal reformats performed. This exam was performed according to our departmental dose-optimization program, which includes automated exposure control, adjustment of the mA and/or kV according to patient size and/or use of iterative reconstruction technique. Comparison: None. Findings: Examination technically limited due to large field of view imaging. Prior indentation of the first digit at the first MTP joint. Skin ulceration plantar to the second MTP joint. Dorsal dislocation of the second proximal phalanx and third proximal phalanx. Subtle fragmentation/fracturing of the plantar margin of the base of the second proximal phalanx. The head of the second metatarsal is exposed due to the ulceration mild cortical irregularity of the second metatarsal head as well. Septic arthritis and osteomyelitis of the second MTP joint suspected. Scattered osteoarthritic changes throughout the midfoot. Scattered vascular calcifications. Impression: Skin ulceration plantar to the second MTP joint with findings concerning for septic arthritis/osteomyelitis of the second MTP joint. Dorsal dislocation of the second proximal phalanx and third proximal phalanx. Additional findings as above Electronically signed by: Cliff Boo MD 05/16/2020 10:42 AM [facility]
[2020-05-16] MEDS ORDERED: VANCOMYCIN HCL INJ 1,000 MG, VANCOMYCIN HCL INJ 500 MG in SODIUM CHLORIDE 0.9% 250ML 25... IVPB ONE (11:22)
[2020-05-16] MEDS ORDERED: PIPERACILLIN/TAZOBACTAM 3.375 GM in SODIUM CHLORIDE 0.9% 100ML 100 ML IVPB ONE (11:22)
[2020-05-16] MEDS ORDERED: KCL 20 MEQ/NS 1,000 ML IVS ONE (13:45)
[2020-05-16 14:30] VITALS: BP 132/71; TEMP 97.9
[2020-05-16 15:07] VITALS: O2SAT 98
== END 2020-05-16 15:09 | disposition short-term general hospital (02) ==
LOC: ER 05:49
DX: A41.9 Sepsis, unspecified organism (principal); E86.0 Dehydration; F05 Delirium due to known physiological condition; M86.271 Subacute osteomyelitis, right ankle and foot; E11.621 Type 2 diabetes mellitus with foot ulcer; R00.0 Tachycardia, unspecified; I45.10 Unspecified right bundle-branch block; I49.3 Ventricular premature depolarization; S40.211A Abrasion of right shoulder, initial encounter; I25.2 Old myocardial infarction; I10 Essential (primary) hypertension; Z20.828 Contact with and (suspected) exposure to other viral communicable diseases; Z86.14 Personal history of Methicillin resistant Staphylococcus aureus infection; Z87.891 Personal history of nicotine dependence; Z86.73 Personal history of transient ischemic attack (TIA), and cerebral infarction without residual deficits; Z95.5 Presence of coronary angioplasty implant and graft; Z79.899 Other long term (current) drug therapy; Z79.82 Long term (current) use of aspirin; Z88.1 Allergy status to other antibiotic agents; W18.11XA Fall from or off toilet without subsequent striking against object, initial encounter; Y92.002 Bathroom of unspecified non-institutional (private) residence as the place of occurrence of the external cause
CPT/HCPCS: 36415; 36416; 70450; 71045; 73700; 80053; 81001; 82550; 82948; 83605; 83880; 84484; 85025; 87040; 87077; 87186; 87635; 93005; 96361; 96365; 96366; 96367; 96375; 99285; J2543; J3370; J3480; J7030; J7050